=== PATIENT | female | born 1950 | race Hispanic/Latino ===

== ENCOUNTER 2016-09-17 10:54 | Outpatient (CLI) | payer MEDICARE ==
--- NOTE | 2016-09-18 08:21 | Vascular Lab Report ---
LOWER EXTREMITY ARTERIAL DUPLEX: REASON FOR EXAM: Peripheral arterial disease/gangrene. COMMENTS ON THE RIGHT: Triphasic waveforms are seen proximally. Monophasic waveforms are seen distally. No significant velocity gradients are identified. Scattered plaque is noted throughout lower extremity.. Findings are consistent with abnormal perfusion without identifiable focal stenosis. Findings are inconsistent with the ability to heal distal wounds. COMMENTS ON THE LEFT: Monophasic waveforms are seen proximally. Monophasic waveforms are seen distally. No significant velocity gradients are identified. No flow noted in the dorsalis pedis artery Scattered plaque identified throughout the extremity. Findings are consistent with abnormal perfusion. Findings are inconsistent with the ability to heal distal wounds. IMPRESSION: RIGHT: Abnormal perfusion without identifiable focal stenosis.. LEFT:Abnormal flow suggesting both inflow disease and diffuse disease throughout the extremity without identifiable stenosis. Occluded dorsalis pedis artery Clinical correlation recommended..
--- NOTE | 2016-09-18 08:23 | Vascular Lab Report ---
LOWER EXTREMITY ARTERIAL PHYSIOLOGIC STUDY: REASON FOR EXAM: Peripheral arterial disease. COMMENTS ON THE RIGHT: Ankle brachial index is 0.85. This value is abnormal. Toe brachial index is 0.64. This value is normal. Wound healing is likely. Pulse volume recording at the level of the ankle is abnormal. Exercise testing was not done. COMMENTS ON THE LEFT: Ankle brachial index is 0.94. This value is abnormal. Toe brachial index is 0.24. This value is abnormal. Wound healing is unlikely. Pulse volume recording at the level of the ankle is normal. Exercise testing was not done. IMPRESSION: RIGHT: Mild peripheral vascular disease LEFT:Mild peripheral vascular disease. Significant small vessel disease in the foot.
== END 2016-09-17 10:55 | disposition home or self-care (01) ==
LOC: VAS 10:54
PROVIDERS: ATTEND Radiology Diagnostic Radiology
DX: I70.263 Atherosclerosis of native arteries of extremities with gangrene, bilateral legs (principal)
CPT/HCPCS: 93922; 93925

== ENCOUNTER 2016-09-23 08:50 | Inpatient (IN) | payer MEDICARE ==
--- NOTE | 2016-09-19 13:57 | Admit Criteria Form ---
Admission Criteria Documentation: VASCULAR DISEASE GRG Clinical Indications for Admission to Inpatient Care (Place 'X' for any and all applicable criteria): Hospital admission is needed for appropriate care of the patient because of ANY ONE of the following (1)(2)(3)(4): [ ]I. Life-threatening or limb-threatening skin ulcer as indicated by ANY ONE of the following(5): [ ]a) Surrounding cellulitis unresponsive to outpatient treatment [ ]b) Wet gangrene [ ]c) Lymphangitis [ ]d) Bacteremia [X ]II. Gangrene requiring intensity and frequency of care not manageable to outpatient, emergency, or observation level of care(5) [ ]III. Severe pain requiring acute inpatient management [ ]IV. Interventional revascularization (eg, surgery, thrombolysis) needed (eg , critical limb ischemia)(21) [ ]V. Urgent inpatient IV anticoagulation needed due to ALL of the following: [ ]a) Temporary subtherapeutic anticoagulation unacceptable because of high risk of short-term venous or arterial thromboembolism due to ANY ONE of the following(7)(8)(9): [ ]i) Venous thromboembolism within the past 12 months [ ]ii) Underlying malignancy [ ]iii) Patient with mechanical cardiac valve(10)(11) [ ]iv) Underlying hypercoagulable state (eg, protein C or protein S deficiency, antithrombin deficiency, antiphospholipid antibodies) [ ]v) Patient at high risk of thromboembolism (eg, status post orthopedic surgery, history of recurrent venous thromboembolism) [ ]vi) Atrial fibrillation with rheumatic valvular heart disease [ ]vii) Atrial fibrillation with 3 or MORE of the following : [ ]1) Congestive heart failure [ ]2) Hypertension [ ]3) Age 65 years or older [ ]4) Diabetes mellitus [ ]5) History of thromboembolism (eg, stroke, TIA , or systemic embolization) more than 3 months ago [ ]6) Female gender [ ]b) Contraindications to outpatient use of "bridging" agent or alternative oral anticoagulant as indicated by ALL of the following: [ ]i) Contraindication to outpatient use of low-molecular -weight heparin as "bridging" agent as indicated by ANY ONE of the following(8) : [ ]1) Documented current or history of heparin- induced thrombocytopenia(12) [ ]2) Severe thrombocytopenia (eg, platelet count less than 50,000/mm3 (50 x109/L)) [ ]3) Documented allergy to heparin, low- molecular-weight heparin, or pork products [ ]4) Renal failure (creatinine clearance < 30 mL /min/1.73m2 (0.50 mL/sec/1.73m2) or on dialysis) [ ]5) Inability to manage self-injection (eg, by patient, caregiver, or visiting nurse) [ ]ii) Contraindication to outpatient use of fondaparinux as "bridging" agent as indicated by ANY ONE of the following(13)(14)(15)(16): [ ]1) Severe thrombocytopenia (eg, platelet count less than 50,000/mm3 (50 x109/L)) [ ]2) Hypersensitivity to fondaparinux, related drugs, or product components [ ]3) Renal failure (creatinine clearance less than 30 mL/min/1.73m2 (0.50 mL/sec/1.73m2) or on dialysis) [ ]4) Inability to manage self-injection (eg, by patient, caregiver, or visiting nurse) [ ]iii) Oral direct thrombin inhibitor (eg, dabigatran) or oral coagulation factor Xa inhibitor (eg, rivaroxaban) not appropriate as oral anticoagulation (eg, indication not appropriate) or contraindicated (eg, hypersensitivity, renal failure)(13)(16)(17)(18)(19)(20) [ ]. Suspected severe acute ischemia due to peripheral vascular disease as indicated by ANY ONE of the following(5)(6): [ ]a) Tissue necrosis [ ]b) Severe pain [ ]c) Acute pulselessness [ ]d) Other evidence of acute severe ischemia (eg, lactic acidosis , motor dysfunction) [ ]VII. Acute or newly diagnosed major vessel (eg, aorta) dissection, rupture, or leakage(5)(6)(22)(23) [ ]VIII.Vascular Disease and ALL of the following: [ ]a) Symptom or finding for which emergency and observation care have failed or are not considered appropriate (Use General Criteria: Observation Care as appropriate) [ ]b) Presence of ANY ONE of the following: [ ]i) A General Admission Criteria [ ]ii) A Pediatric General Admission Criteria The original [facility] content created by Jesus Cancino has been revised. The portions of the content which have been revised are identified through the use of italic text or in bold, and [facility] has neither reviewed nor approved the modified material. All other unmodified content is copyright [facility]. Please see references footnoted in the original [facility] edition 2016 Admission Criteria Met: Yes
[~2016-09-23 08:50] MED LIST: ANCEF/STERILE WATER 2 GM/20 ML 2 GM/20 ML SYRINGE IV NR; PEPCID PO NR; VERSED IV NR
[2016-09-23] MEDS ORDERED: ZOFRAN IV PRN (09:31)
[2016-09-23] MEDS ORDERED: SUBLIMAZE IV NR (09:31)
[2016-09-23 09:42] LABS: Basophils % (Auto) 0.6 % (0.0-1.8); Eosinophils % (Auto) 2.8 % (0.0-4.3); Hematocrit 39.2 % (30.3-42.9); Hemoglobin 12.8 gm/dl (10.1-14.3); Mean Corpuscular HGB Conc 33 % (30-34); Mean Corpuscular Hemoglobin 29 pg (28-32); Mean Corpuscular Volume 87 fl (79-97); Platelet Count 218 K/mm3 (140-440); Red Blood Count 4.48 M/mm3 (3.65-5.03); White Blood Count 8.9 K/mm3 (4.5-11.0)
[2016-09-23] MEDS: NACL 0.9% 1000 ML 1,000 ML IV SCH (09:42)
[2016-09-23 09:57] LABS: Anion Gap 18 mmol/L; BUN/Creatinine Ratio 8.33; Blood Urea Nitrogen 5 mg/dL (7-17); Calcium 9.4 mg/dL (8.4-10.2); Carbon Dioxide 26 mmol/L (22-30); Glucose 140 mg/dL (65-100); INR 1.09 (0.87-1.13); Sodium 140 mmol/L (137-145)
[2016-09-23] MEDS ORDERED: DILAUDID ONE (09:59)
[2016-09-23] MEDS ORDERED: DIPRIVAN 10 MG/ML IV ONE (09:59)
[2016-09-23] MEDS ORDERED: XYLOCAINE MPF 2% ONE (10:04)
[2016-09-23] MEDS ORDERED: MARCAINE 0.5% 30 ML INFILTRATI ONE (11:58)
[2016-09-23] MEDS ORDERED: DECADRON ONE ×2 (11:58→12:28)
--- NOTE | 2016-09-23 12:17 | Anesthesia Day of Surgery ---
Anesthesia Day of Surgery - Day of Surgery Patient Examined: Yes Patient H&P Reviewed: Yes Patient is NPO: Yes
--- NOTE | 2016-09-23 12:17 | Anesthesia Consultation ---
Anesthesia Consult and Med Hx Date of service: 09/23/16 - Airway Anesthetic Teeth Evaluation: Edentulous ROM Head & Neck: Adequate Mental/Hyoid Distance: Adequate Mallampati Class: Class II Intubation Access Assessment: Probably Good - Pulmonary Exam CTA: Yes - Cardiac Exam Cardiac Exam: RRR - Pre-Operative Health Status ASA Pre-Surgery Classification: ASA3 Proposed Anesthetic Plan: General Nerve Block: Ank - Pulmonary Hx Smoking: Yes (2-3 cigs/day) Hx Asthma: No COPD: Yes Hx Sleep Apnea: No - Cardiovascular System Hx Hypertension: Yes Hx Coronary Artery Disease: No Hx Pacemaker: No Hx Peripheral Vascular Disease: Yes - Central Nervous System Hx Psychiatric Problems: No - Endocrine Hx Non-Insulin Dependent Diabetes: Yes - Other Systems Hx Cancer: No
[2016-09-23] MEDS ORDERED: ZOFRAN ONE (12:28)
[2016-09-23] MEDS ORDERED: NACL 0.9% IR ONE (13:00)
--- NOTE | 2016-09-23 13:05 | Operative Report ---
Operative Report Operative Report: Date of procedure: 09/23/2016 Pre-operative diagnosis: PVD with Left Foot Gangrene Post-operative diagnosis: Same Procedure(s): 1. Left Transmetatarsal Amputation Surgeon: Olivier Thompson MD Cooker Operator: None Anesthesia: General Endotracheal Anesthesia EBL: Minimal Counts: Correct Complications: None Condition: Stable Findings: All remaining tissue appeared healthy with good bleeding edges. Specimen: Left forefoot sent for pathology Indication: The patient is a 66-year-old female with a history of peripheral vascular disease who presented with rest pain and thrombosis of her left SFA and tibial vessels. She underwent thrombolysis and revascularization of left lower extremity and had excellent flow to the foot however her digital vessels remained thrombosed. She presented to the office with gangrene of her second through fourth toes and is felt that she would not heal toe amputation sites and needed a transmetatarsal amputation. She was given the risks, benefits, and alternative procedures and consented to procedure. Description of Procedure: The patient was brought to the operating room and laid in supine position after general endotracheal anesthesia was achieved was prepped and draped in normal sterile fashion. A transverse incision was then created along the midportion of the metatarsals and carried distally to create a posterior flap. Electrocautery was used to take the dissection down to the metatarsals and the periosteum was then elevated on each metatarsal. The oscillating saw was then used to transect each metatarsal and then electrocautery was used to divide the remaining soft tissue and the specimen was passed off. Cautery was then used to achieve hemostasis within the wound and then a rasp was used to smooth each edge of the bone. The wound was copiously irrigated with saline and then anesthetized with Marcaine. The wound was then closed in 2 layers using 2-0 Vicryl to reapproximate the deep dermal layer and erica in the skin. The wound was then dressed with Xeroform gauze, fluffs, Kerlix, and an Guido bandage. The patient tolerated procedure well all sponge needle and instrument counts correct, the patient was taken to recovery in stable condition.
[2016-09-23] MEDS ORDERED: NACL 0.9% 1000 ML 1,000 ML ONE (13:06)
[2016-09-23] MEDS ORDERED: MORPHINE IV PRN ×2 (13:06)
[2016-09-23] MEDS ORDERED: DILAUDID IV PRN (13:06)
[2016-09-23] MEDS: DILAUDID IV PRN ×2 (13:43→13:53)
[2016-09-23] MEDS ORDERED: PREDNISOLONE ACETATE 1% OD SCH (14:00)
[2016-09-23] MEDS: PERCOCET 5/325 PO PRN (14:03)
--- NOTE | 2016-09-23 14:59 | Post Anesthesia Evaluation ---
- Post Anesthesia Evaluation Patient Participated: Yes Airway Patent: Yes Stable Respiratory Function: Yes Nausea/Vomiting: No Temp > 96.8F: Yes Pain Manageable: Yes Adequeate Hydration: Yes Anesthesia Complications: No Block Receding Appropriately: Not Applicable Patient on Ventilator: No
[2016-09-23] MEDS: NOVOLOG SUB-Q SCH ×2 (18:21→22:24)
--- NOTE | 2016-09-23 18:51 | Consultation ---
History of Present Illness - Reason for Consult Consult date: 09/23/16 Evaluate for Acute IRU - History of Present Illness 66 y.o. female with history of PVD and rest pain admitted for left transmetatarsal amputation secondary to gangrene. Pt with history of prior thrombolysis and revascularization prior to amputation. Pt is POD#0; pain remains well controlled due to block from surgery. Consult requested for post- acute placement recommendations. Past History Past Medical History: hypertension, PVD Past Surgical History: Other (revascularization procedure, breast cyst resection ) Social history: lives with family, smoking Family history: CAD, diabetes, hypertension Medications and Allergies Allergies Allergy/AdvReac Type Severity Reaction Status Date / Time lisinopril Allergy Rash Verified 09/18/16 17:14 Home Medications Medication Instructions Recorded Confirmed Last Taken Type AtorvaSTATin [Lipitor] 20 mg PO DAILY 08/26/16 09/23/16 09/22/16 19:00 History Clopidogrel Bisulfate [Clopidogrel] 75 mg PO DAILY 08/26/16 09/23/16 09/22/16 19 :00 History Ketorolac Tromethamin 0.4%(Nf) 1 drop OD QID 08/26/16 09/23/16 09/21/16 19:00 History [Acular Ls 0.4% Ophth Christina] Metformin HCl [Metformin HCl ER] 750 mg PO BID 08/26/16 09/23/16 09/21/16 19:00 History Ofloxacin 1 drop OD 4XD 08/26/16 09/23/16 09/22/16 20:00 History Tramadol HCl [traMADol] 50 mg PO Q6HR PRN 08/26/16 09/19/16 08/25/16 History 50mg prednisoLONE ACETATE 1% 1 drop OD QID 08/26/16 09/23/16 09/21/16 19:00 History Apixaban [Eliquis] 5 mg PO Q12HR #60 tablet 08/30/16 09/23/16 09/22/16 19:00 Rx Apixaban [Eliquis] 10 mg PO Q12HR #14 tablet 08/30/16 09/19/16 Unknown Rx oxyCODONE /ACETAMINOPHEN [Percocet 1 - 2 tab PO Q4HR #40 tab 08/30/16 09/23/16 09/22/16 11:55 Rx 5/325] Active Meds: Active Medications Acetaminophen/Hydrocodone Bitart ([place] 5/325) 2 each PO Q6H PRN PRN Reason: Pain, Moderate (4-6) Apixaban (Eliquis) 5 mg PO Q12HR [facility] Atorvastatin Calcium (Lipitor) 20 mg PO QHS [facility] Clopidogrel Bisulfate (Plavix) 75 mg PO DAILY [facility] Famotidine (Pepcid) 20 mg PO PREOP NR Stop: 09/23/16 23:59 Last Admin: 09/23/16 09:43 Dose: 20 mg Hydromorphone HCl (Dilaudid) 0.5 mg IV Q3H PRN PRN Reason: Pain , Severe (7-10) Sodium Chloride (Nacl 0.9% 1000 Ml) 1,000 mls @ 42 mls/hr IV DIRECT COURTNEY Last Admin: 09/23/16 09:42 Dose: 42 mls/hr Cefazolin Sodium (Ancef/Ns 1 Gm/50 Ml) 1 gm in 50 mls @ 100 mls/hr IV Q8H [facility] Stop: 09/24/16 05:29 Insulin Aspart (Novolog) 0 units SUB-Q ACHS [facility] PRN Reason: Protocol Last Admin: 09/23/16 18:21 Dose: 1 units Midazolam HCl (Versed) 2 mg IV PREOP NR Stop: 09/23/16 23:59 Last Admin: 09/23/16 12:06 Dose: 2 mg Miscellaneous Medication (Ketorolac Tromethamin 0.4%(Nf)) 1 drop OD QID [facility] Miscellaneous Medication (Metformin Hcl [Metformin Hcl Er]) 750 mg PO BID [facility] Morphine Sulfate (Morphine) 2 mg IV Q4H PRN PRN Reason: Pain, Moderate (4-6) Last Admin: 09/23/16 13:29 Dose: 2 mg Morphine Sulfate (Morphine) 4 mg IV Q4H PRN PRN Reason: Pain , Severe (7-10) Ofloxacin (Ocuflox) 1 drops OD 4XD [facility] Oxycodone/Acetaminophen (Percocet 5/325) 1 tab PO Q6H PRN PRN Reason: Pain, Moderate (4-6) Last Admin: 09/23/16 14:03 Dose: 1 tab Prednisolone Acetate (Pred Forte 1%) 1 drops OD QID [facility] Review of Systems All systems: negative Ears, nose, mouth and throat: no headache Cardiovascular: no chest pain Gastrointestinal: no nausea, no vomiting Exam - Constitutional Vitals: Vital Signs - 12hr 09/23/16 09/23/16 09/23/16 09:00 11:59 12:02 Temperature 97.8 F Pulse Rate 86 70 Respiratory 18 15 18 Rate Blood Pressure 152/66 141/66 O2 Sat by Pulse 98 97 Oximetry 09/23/16 09/23/16 09/23/16 12:04 12:09 12:11 Temperature Pulse Rate 84 79 81 Respiratory 13 13 14 Rate Blood Pressure 147/66 139/58 118/67 O2 Sat by Pulse 97 98 98 Oximetry 09/23/16 09/23/16 09/23/16 13:08 13:10 13:15 Temperature 97.4 F L Pulse Rate 79 80 76 Respiratory 16 18 18 Rate Blood Pressure 148/80 147/73 139/66 O2 Sat by Pulse 100 100 100 Oximetry 09/23/16 09/23/16 09/23/16 13:20 13:29 13:30 Temperature Pulse Rate 75 75 Respiratory 18 16 15 Rate Blood Pressure 133/65 136/64 O2 Sat by Pulse 100 100 Oximetry 09/23/16 09/23/16 09/23/16 13:43 13:45 13:47 Temperature Pulse Rate 71 Respiratory 16 16 16 Rate Blood Pressure 140/62 O2 Sat by Pulse 100 Oximetry 09/23/16 09/23/16 09/23/16 13:52 13:53 14:00 Temperature 97.9 F Pulse Rate 69 Respiratory 16 16 12 Rate Blood Pressure 140/71 O2 Sat by Pulse 99 Oximetry 09/23/16 14:03 Temperature Pulse Rate Respiratory 12 Rate Blood Pressure O2 Sat by Pulse Oximetry General appearance: no acute distress, other (sitting up in bed, eating dinner; daughter present) - EENT Eyes: PERRL ENT: hearing intact - Respiratory Respiratory effort: normal Respiratory: bilateral: CTA - Cardiovascular Rhythm: regular Heart Sounds: Present: S1 & S2 - Extremities Extremity abnormal: other (post-op dressng/SONYA to LLE) - Gastrointestinal General gastrointestinal: Present: soft, non-tender, non-distended, normal bowel sounds - Neurologic Neurologic: CNII-XII intact, moves all extremities, other (sensation grossly intact) - Psychiatric Psychiatric: appropriate mood/affect, intact judgment & insight, memory intact, cooperative - Labs CBC & Chem 7: 09/23/16 09:25 09/23/16 09:25 Labs: Laboratory Results - last 72 hr 09/23/16 09/23/16 09/23/16 09:25 09:25 09:25 WBC 8.9 RBC 4.48 Hgb 12.8 Hct 39.2 MCV 87 MCH 29 MCHC 33 RDW 15.0 Plt Count 218 Lymph % (Auto) 23.7 [place] % (Auto) 5.4 Eos % (Auto) 2.8 Baso % (Auto) 0.6 Lymph # 2.1 [place] # 0.5 Eos # 0.3 Baso # 0.1 Seg Neutrophils % 67.5 Seg Neutrophils # 6.0 PT 14.0 INR 1.09 Sodium 140 Potassium 4.0 Chloride 100.0 Carbon Dioxide 26 Anion Gap 18 BUN 5 L Creatinine 0.6 L Estimated GFR > 60 BUN/Creatinine Ratio 8.33 Glucose 140 H POC Glucose Calcium 9.4 09/23/16 09/23/16 09/23/16 09:30 13:19 16:45 WBC RBC Hgb Hct MCV MCH MCHC RDW Plt Count Lymph % (Auto) [place] % (Auto) Eos % (Auto) Baso % (Auto) Lymph # [place] # Eos # Baso # Seg Neutrophils % Seg Neutrophils # PT INR Sodium Potassium Chloride Carbon Dioxide Anion Gap BUN Creatinine Estimated GFR BUN/Creatinine Ratio Glucose POC Glucose 141 H 125 H 176 H Calcium Assessment and Plan Patient was assessed and evaluated for Acute Inpatient Rehab Unit. 66 y.o. female s/p left TMA secondary to gangrene. Rehab options discussed with patient and daughter. PT/OT evaluations have been ordered and are pending for tomorrow. Pt expressed desire to return home with [facility] ( already active), if stable; however, would agree to SNF close to home, if necessary. BP stable; post-op labs in AM. Will continue to follow; recommendations to follow after therapy evaluations have been completed. Thank you for consultation. - Patient Problems (1) Status post transmetatarsal amputation of left foot Current Visit: Yes Status: Acute (2) Atherosclerosis of [place] arteries of the extremities with rest pain Current Visit: Yes Status: Acute Qualifiers: Peripheral atherosclerosis location: lower extremity Laterality: left Qualified Code(s): I70.222 - Atherosclerosis of [place] arteries of extremities with rest pain, left leg (3) HTN (hypertension) Current Visit: Yes Status: Chronic Qualifiers: Hypertension type: essential hypertension Qualified Code(s): I10 - Essential (primary) hypertension
[2016-09-23] MEDS ORDERED: ANCEF/NS 1 GM/50 ML 1 GM/50 ML BAG IV SCH (21:00)
[2016-09-23] MEDS: ELIQUIS PO SCH (21:39)
[2016-09-23] MEDS: PRED FORTE 1% OD SCH (21:41)
[2016-09-23] MEDS: OCUFLOX OD SCH (21:41)
[2016-09-23] MEDS ORDERED: METFORMIN HCL 750 MG PO SCH (22:00)
[2016-09-24] MEDS: NORCO 5/325 PO PRN ×2 (01:25→16:55)
[2016-09-24 04:56] LABS: Hemoglobin 11.2 gm/dl (10.1-14.3)
[2016-09-24 05:14] LABS: Anion Gap 13 mmol/L; Blood Urea Nitrogen 6 mg/dL (7-17); Calcium 8.2 mg/dL (8.4-10.2); Carbon Dioxide 24 mmol/L (22-30); Glucose 175 mg/dL (65-100); Potassium 4.3 mmol/L (3.6-5.0); Sodium 135 mmol/L (137-145)
[2016-09-24] MEDS: OCUFLOX OD SCH ×4 (09:51→22:34)
[2016-09-24] MEDS: PRED FORTE 1% OD SCH ×4 (09:53→22:33)
[2016-09-24] MEDS: ELIQUIS PO SCH ×2 (09:54→22:31)
[2016-09-24] MEDS: PLAVIX PO SCH (09:54)
[2016-09-24] MEDS: KETOROLAC TROMETHAMIN 0.4% OD SCH ×4 (10:00→22:36)
--- NOTE | 2016-09-24 10:20 | Progress Note ---
Subjective Date of service: 09/24/16 Interval history: 1st day after left metatarsal amputation Patient is in the bed, relatively comfortable. Pain is well controlled with pain meds. No nausea or vomiting. No anesthesia complications Objective - Constitutional Vitals: Vital Signs - 12hr 09/23/16 09/24/16 09/24/16 23:17 04:34 08:00 Temperature 97.4 F L 98.5 F 98.9 F Pulse Rate [ 86 74 73 Right From Monitor] Respiratory 20 20 20 Rate Blood Pressure 137/73 114/75 148/69 [Right Arm] O2 Sat by Pulse 93 94 97 Oximetry - Labs CBC & Chem 7: 09/24/16 04:26 09/24/16 04:26 Labs: Abnormal lab results 09/23/16 09/23/16 09/23/16 Range/Units 13:19 16:45 22:12 Sodium (137-145) mmol/L BUN (7-17) mg/dL Creatinine (0.7-1.2) mg/dL Glucose (65-100) mg/dL POC Glucose 125 H 176 H 163 H (70-105) Calcium (8.4-10.2) mg/dL 09/24/16 09/24/16 Range/Units 04:26 07:23 Sodium 135 L (137-145) mmol/L BUN 6 L (7-17) mg/dL Creatinine 0.4 L (0.7-1.2) mg/dL Glucose 175 H (65-100) mg/dL POC Glucose 157 H (70-105) Calcium 8.2 L (8.4-10.2) mg/dL
[2016-09-24] MEDS ORDERED: ANCEF/NS 1 GM/50 ML 1 GM/50 ML BAG IV SCH (12:00)
--- NOTE | 2016-09-24 16:24 | Progress Note ---
Assessment and Plan Increase act. OOB with assistance. Await PT eval. Check wounds in the next 24-48 hrs. - Patient Problems (1) Atherosclerosis of [place] arteries of the extremities with gangrene Current Visit: Yes Status: Acute Qualifiers: Peripheral atherosclerosis location: P Laterality: L Subjective Date of service: 09/24/16 Interval history: Pt awake and alert. She c/o incisional pain, but improved with analgesics. Not oob yet. Objective - Constitutional Vitals: Vital Signs - 12hr 09/24/16 09/24/16 04:34 08:00 Temperature 98.5 F 98.9 F Pulse Rate [ 74 73 Right From Monitor] Respiratory 20 20 Rate Blood Pressure 114/75 148/69 [Right Arm] O2 Sat by Pulse 94 97 Oximetry General appearance: Present: no acute distress - EENT Eyes: EOM intact ENT: hearing intact - Neck Neck: supple - Respiratory Respiratory effort: normal Extremities: abnormal (LLE prabha wrap in place. It appears to be clean and dry.) - Neurologic Neurologic: no focal deficits - Psychiatric Psychiatric: appropriate mood/affect, intact judgment & insight, cooperative - Labs CBC & Chem 7: 09/24/16 04:26 09/24/16 04:26 Labs: Abnormal lab results 09/23/16 09/23/16 09/24/16 Range/Units 16:45 22:12 04:26 Sodium 135 L (137-145) mmol/L BUN 6 L (7-17) mg/dL Creatinine 0.4 L (0.7-1.2) mg/dL Glucose 175 H (65-100) mg/dL POC Glucose 176 H 163 H (70-105) Calcium 8.2 L (8.4-10.2) mg/dL 09/24/16 09/24/16 Range/Units 07:23 12:01 Sodium (137-145) mmol/L BUN (7-17) mg/dL Creatinine (0.7-1.2) mg/dL Glucose (65-100) mg/dL POC Glucose 157 H 119 H (70-105) Calcium (8.4-10.2) mg/dL
[2016-09-24] MEDS: NOVOLOG SUB-Q SCH (22:55)
[2016-09-25] MEDS: PERCOCET 5/325 PO PRN (04:58)
[2016-09-25] MEDS: NOVOLOG SUB-Q SCH ×4 (07:30→21:20)
[2016-09-25] MEDS: PLAVIX PO SCH (09:04)
[2016-09-25] MEDS: ELIQUIS PO SCH ×2 (09:04→22:20)
[2016-09-25] MEDS: PRED FORTE 1% OD SCH ×5 (10:00→22:22)
[2016-09-25] MEDS: KETOROLAC TROMETHAMIN 0.4% OD SCH ×5 (10:00→22:20)
[2016-09-25] MEDS: OCUFLOX OD SCH ×5 (10:00→22:22)
[2016-09-25] MEDS: NORCO 5/325 PO PRN ×2 (11:05→18:30)
--- NOTE | 2016-09-25 14:16 | Event Note ---
Date: 09/25/16 IRU F/U, s/p left TMA. Pt reports doing well on today; no dizziness or lightheadedness with gait training. Ambulated 37 feet with FWW, Yuliya shoe at CGA/SBA; Anna for sit-stand transfers. Pain is well controlled. Pt/daughter requesting placement at SNF close to home; pt has been accepted. Please call for any further questions/concerns. Will sign off.
--- NOTE | 2016-09-25 18:17 | Progress Note ---
Assessment and Plan This patient is status post a left transmetatarsal amputation. Her incisions appear to be doing well postoperatively. She was evaluated by physical therapy and the acute rehabilitation rehabilitation service. She is not a candidate for subacute rehabilitation. Discharge planning for this facility were completed. The patient was accepted. The patient will be transferred to the accepting facility once all arrangements are completed. Discharge instructions were given to the patient at the bedside. She will follow up in our office in 2 weeks. The erica will be removed in 6-8 weeks. She has a Yuliya heel weight bearing tissue to offload pressure from the forefoot. She is to use this with ambulation. - Patient Problems (1) Atherosclerosis of [place] arteries of the extremities with gangrene Current Visit: Yes Status: Acute Qualifiers: Peripheral atherosclerosis location: P Laterality: L Subjective Date of service: 09/25/16 Interval history: Patient is awake and alert without specific complaint at present. Objective - Constitutional Vitals: Vital Signs - 12hr 09/25/16 09/25/16 09/25/16 08:00 08:11 11:05 Temperature 97.7 F Pulse Rate [ 68 Right From Monitor] Respiratory 18 18 Rate Blood Pressure 136/70 [Right Arm] O2 Sat by Pulse 98 98 Oximetry 09/25/16 15:42 Temperature 97.5 F L Pulse Rate [ 66 Right From Monitor] Respiratory 18 Rate Blood Pressure 183/77 [Right Arm] O2 Sat by Pulse Oximetry General appearance: Present: no acute distress - EENT Eyes: EOM intact ENT: hearing intact - Neck Neck: supple - Respiratory Respiratory effort: normal Extremities: abnormal (bandages from left lower extremity were removed. Her incision is intact erica are in place. No erythema or drainage appreciated.) - Neurologic Neurologic: no focal deficits - Psychiatric Psychiatric: appropriate mood/affect, intact judgment & insight, cooperative - Labs CBC & Chem 7: 09/24/16 04:26 09/24/16 04:26 Labs: Abnormal lab results 09/24/16 Range/Units 22:32 POC Glucose 135 H (70-105)
--- NOTE | 2016-09-25 18:21 | Short Stay Summary ---
Short Stay Documentation Date of service: 09/25/16 - History H&P: obtained from office Past Medical History: hypertension, PVD Past Surgical History: Other (revascularization procedure, breast cyst resection ) Social history: lives with family, smoking - Allergies and Medications Current Medications: Allergies lisinopril Allergy (Verified 09/18/16 17:14) Rash Home Medications Medication Instructions Recorded Confirmed Last Taken Type AtorvaSTATin [Lipitor] 20 mg PO DAILY 08/26/16 09/23/16 09/22/16 19:00 History Clopidogrel Bisulfate [Clopidogrel] 75 mg PO DAILY 08/26/16 09/23/16 09/22/16 19 :00 History Ketorolac Tromethamin 0.4%(Nf) 1 drop OD QID 08/26/16 09/23/16 09/21/16 19:00 History [Acular Ls 0.4% Ophth Christina] Metformin HCl [Metformin HCl ER] 750 mg PO BID 08/26/16 09/23/16 09/21/16 19:00 History Ofloxacin 1 drop OD 4XD 08/26/16 09/23/16 09/22/16 20:00 History Tramadol HCl [traMADol] 50 mg PO Q6HR PRN 08/26/16 09/19/16 08/25/16 History 50mg prednisoLONE ACETATE 1% 1 drop OD QID 08/26/16 09/23/16 09/21/16 19:00 History Apixaban [Eliquis] 5 mg PO Q12HR #60 tablet 08/30/16 09/23/16 09/22/16 19:00 Rx Apixaban [Eliquis] 10 mg PO Q12HR #14 tablet 08/30/16 09/19/16 Unknown Rx oxyCODONE /ACETAMINOPHEN [Percocet 1 - 2 tab PO Q4HR #40 tab 08/30/16 09/23/16 09/22/16 11:55 Rx 5/325] Active Medications Acetaminophen/Hydrocodone Bitart ([place] 5/325) 2 each PO Q6H PRN PRN Reason: Pain, Moderate (4-6) Last Admin: 09/25/16 11:05 Dose: 2 each Apixaban (Eliquis) 5 mg PO Q12HR [facility] Last Admin: 09/25/16 09:04 Dose: 5 mg Atorvastatin Calcium (Lipitor) 20 mg PO QHS [facility] Last Admin: 09/24/16 22:32 Dose: 20 mg Clopidogrel Bisulfate (Plavix) 75 mg PO DAILY [facility] Last Admin: 09/25/16 09:04 Dose: 75 mg Hydromorphone HCl (Dilaudid) 0.5 mg IV Q3H PRN PRN Reason: Pain , Severe (7-10) Sodium Chloride (Nacl 0.9% 1000 Ml) 1,000 mls @ 42 mls/hr IV DIRECT [facility] Last Admin: 09/23/16 09:42 Dose: 42 mls/hr Insulin Aspart (Novolog) 0 units SUB-Q ACHS [facility] PRN Reason: Protocol Last Admin: 09/25/16 11:30 Dose: Not Given Miscellaneous Medication (Ketorolac Tromethamin 0.4%(Nf)) 1 drop OD QID [facility] Last Admin: 09/25/16 15:43 Dose: 1 drop Miscellaneous Medication (Metformin Hcl [Metformin Hcl Er]) 750 mg PO BID [facility] Morphine Sulfate (Morphine) 2 mg IV Q4H PRN PRN Reason: Pain, Moderate (4-6) Last Admin: 09/23/16 13:29 Dose: 2 mg Morphine Sulfate (Morphine) 4 mg IV Q4H PRN PRN Reason: Pain , Severe (7-10) Last Admin: 09/23/16 21:39 Dose: 4 mg Ofloxacin (Ocuflox) 1 drops OD 4XD [facility] Last Admin: 09/25/16 15:41 Dose: 1 drops Oxycodone/Acetaminophen (Percocet 5/325) 1 tab PO Q6H PRN PRN Reason: Pain, Moderate (4-6) Last Admin: 09/25/16 04:58 Dose: 1 tab Prednisolone Acetate (Pred Forte 1%) 1 drops OD QID [facility] Last Admin: 09/25/16 15:42 Dose: 1 drops - Physical exam Extremities: abnormal (bandages from left lower extremity were removed. Her incision is intact erica are in place. No erythema or drainage appreciated.) - Brief post op/procedure progress note Procedure: Operative Report Operative Report: Date of procedure: 09/23/2016 Pre-operative diagnosis: PVD with Left Foot Gangrene Post-operative diagnosis: Same Procedure(s): 1. Left Transmetatarsal Amputation Surgeon: Olivier Thompson MD Customer Engagement Specialist: None Anesthesia: regional block with MAC EBL: Minimal Counts: Correct Complications: None Condition: Stable Findings: All remaining tissue appeared healthy with good bleeding edges. Specimen: Left forefoot sent for pathology Indication: The patient is a 66-year-old female with a history of peripheral vascular disease who presented with rest pain and thrombosis of her left SFA and tibial vessels. She underwent thrombolysis and revascularization of left lower extremity and had excellent flow to the foot however her digital vessels remained thrombosed. She presented to the office with gangrene of her second through fourth toes and is felt that she would not heal toe amputation sites and needed a transmetatarsal amputation. She was given the risks, benefits, and alternative procedures and consented to procedure. - Disposition Condition at discharge: Stable Disposition: DC/TX SNF [facility] - Discharge Diagnoses (1) Atherosclerosis of [place] arteries of the extremities with gangrene Status: Acute Qualifiers: Peripheral atherosclerosis location: P Laterality: L Short Stay Discharge Plan Activity: advance as tolerated Weight Bearing Status: Weight Bear as Tolerated Diet: diabetic Wound: keep clean and dry, change dressing (daily) Special Instructions: physical therapy Follow up with: OLIVIER THOMPSON MD [Staff Physician] - 14 Days
[2016-09-25] MEDS: NACL 0.9% 1000 ML 1,000 ML IV SCH (22:21)
[2016-09-26] MEDS: NORCO 5/325 PO PRN (10:12)
[2016-09-26] MEDS: PLAVIX PO SCH (10:13)
[2016-09-26] MEDS: ELIQUIS PO SCH (10:13)
[2016-09-26] MEDS: PRED FORTE 1% OD SCH ×2 (10:15→14:48)
[2016-09-26] MEDS: OCUFLOX OD SCH ×2 (10:16→14:48)
--- NOTE | 2016-09-26 14:49 | Progress Note ---
Assessment and Plan Patient is doing well status post left TMA. All wounds appear healthy and healing well. She is clinically referred for discharge to her assisted when available. Subjective Date of service: 09/26/16 Interval history: Patient is without complaints. She is able to perform minimal ambulation with her Darco boot. Objective - Constitutional Vitals: Vital Signs - 12hr 09/26/16 08:00 Temperature 98.4 F Pulse Rate [ 57 L Right From Monitor] Respiratory 18 Rate Blood Pressure 132/62 [Right Arm] O2 Sat by Pulse 97 Oximetry General appearance: Present: no acute distress - Neck Neck: supple - Respiratory Respiratory effort: normal - Cardiovascular Rhythm: regular Extremities: no ischemia, normal temperature, abnormal (left TMA incision is clean dry and intact without evidence of ischemia or infection) - Labs CBC & Chem 7: 09/24/16 04:26 09/24/16 04:26 Labs: Abnormal lab results 09/25/16 09/25/16 09/25/16 Range/Units 08:15 11:21 15:29 POC Glucose 115 H 118 H 149 H (70-105) 09/25/16 09/26/16 Range/Units 21:42 08:35 POC Glucose 119 H 117 H (70-105)
[2016-09-26] MEDS: KETOROLAC TROMETHAMIN 0.4% OD SCH (14:53)
[2016-09-26 16:23] VITALS: BP 142/68
== END 2016-09-26 17:15 | DRG 240 ==
LOC: 3A 08:50 → 2B-SURG 13:20
PROVIDERS: ADMIT Surgery Vascular Surgery; ATTEND Surgery Vascular Surgery
PROC: 0Y6N0Z9 Detachment at Left Foot, Partial 1st Ray, Open Approach (ICD-10-PCS; principal; 2016-09-23)
PROC: 0Y6N0ZB Detachment at Left Foot, Partial 2nd Ray, Open Approach (ICD-10-PCS; 2016-09-23)
PROC: 0Y6N0ZC Detachment at Left Foot, Partial 3rd Ray, Open Approach (ICD-10-PCS; 2016-09-23)
PROC: 0Y6N0ZD Detachment at Left Foot, Partial 4th Ray, Open Approach (ICD-10-PCS; 2016-09-23)
PROC: 0Y6N0ZF Detachment at Left Foot, Partial 5th Ray, Open Approach (ICD-10-PCS; 2016-09-23)
DX: I70.262 Atherosclerosis of native arteries of extremities with gangrene, left leg (principal); I74.3 Embolism and thrombosis of arteries of the lower extremities; I10 Essential (primary) hypertension; E78.5 Hyperlipidemia, unspecified; F17.210 Nicotine dependence, cigarettes, uncomplicated; Z79.4 Long term (current) use of insulin; Z82.49 Family history of ischemic heart disease and other diseases of the circulatory system; Z83.3 Family history of diabetes mellitus; Z88.8 Allergy status to other drugs, medicaments and biological substances; Z88.6 Allergy status to analgesic agent; Z98.49 Cataract extraction status, unspecified eye; Z98.890 Other specified postprocedural states; Z71.6 Tobacco abuse counseling
CPT/HCPCS: 36415; 80048; 82962; 85014; 85018; 85025; 85610; 88307; 88311; A9270-GY; G8978-GP; G8979-GP; J0690; J1100; J1170; J1815; J2250; J2270; J2405; J2704; J3010; J7030

== ENCOUNTER 2017-01-02 08:14 | Outpatient (CLI) | payer MEDICARE ==
[2017-01-02] MEDS ORDERED: XYLOCAINE TOPICAL 4% TP ONE (08:54)
[2017-01-02] MEDS ORDERED: SANTYL TP ONE (09:48)
== END 2017-01-02 08:15 | disposition home or self-care (01) ==
LOC: WOUND 08:14
PROVIDERS: ATTEND Nurse Practitioner
DX: T87.89 Other complications of amputation stump (principal); I70.245 Atherosclerosis of native arteries of left leg with ulceration of other part of foot; E11.621 Type 2 diabetes mellitus with foot ulcer; L97.521 Non-pressure chronic ulcer of other part of left foot limited to breakdown of skin; E78.2 Mixed hyperlipidemia; J43.9 Emphysema, unspecified; L84 Corns and callosities; Z98.49 Cataract extraction status, unspecified eye; F17.200 Nicotine dependence, unspecified, uncomplicated; Y83.5 Amputation of limb(s) as the cause of abnormal reaction of the patient, or of later complication, without mention of misadventure at the time of the procedure
CPT/HCPCS: 11042; G0463; 11055

== ENCOUNTER 2017-01-09 10:09 | Outpatient (CLI) | payer MEDICARE ==
[2017-01-09] MEDS ORDERED: XYLOCAINE TOPICAL 4% TP ONE (11:16)
[2017-01-09] MEDS ORDERED: SANTYL TP ONE (11:46)
[2017-01-10] MEDS ORDERED: SANTYL TP SCH (10:00)
== END 2017-01-09 10:10 | disposition home or self-care (01) ==
LOC: WOUND 10:09
PROVIDERS: ATTEND Nurse Practitioner
DX: T87.89 Other complications of amputation stump (principal); I70.245 Atherosclerosis of native arteries of left leg with ulceration of other part of foot; E11.621 Type 2 diabetes mellitus with foot ulcer; L97.521 Non-pressure chronic ulcer of other part of left foot limited to breakdown of skin; E78.2 Mixed hyperlipidemia; J43.9 Emphysema, unspecified; F17.200 Nicotine dependence, unspecified, uncomplicated; Z98.49 Cataract extraction status, unspecified eye; Y83.5 Amputation of limb(s) as the cause of abnormal reaction of the patient, or of later complication, without mention of misadventure at the time of the procedure

== ENCOUNTER 2017-01-16 09:59 | Outpatient (CLI) | payer MEDICARE ==
[2017-01-16] MEDS ORDERED: XYLOCAINE TOPICAL 4% TP ONE (10:50)
[2017-01-16] MEDS ORDERED: SANTYL TP ONE (11:41)
[2017-01-17] MEDS ORDERED: SANTYL TP ONE (09:57)
[2017-01-17] MEDS ORDERED: XYLOCAINE TOPICAL 4% TP ONE (09:57)
== END 2017-01-16 10:00 | disposition home or self-care (01) ==
LOC: WOUND 09:59
PROVIDERS: ATTEND Nurse Practitioner
DX: T87.89 Other complications of amputation stump (principal); I70.245 Atherosclerosis of native arteries of left leg with ulceration of other part of foot; E11.621 Type 2 diabetes mellitus with foot ulcer; L97.521 Non-pressure chronic ulcer of other part of left foot limited to breakdown of skin; I70.293 Other atherosclerosis of native arteries of extremities, bilateral legs; E78.2 Mixed hyperlipidemia; J43.9 Emphysema, unspecified; F17.200 Nicotine dependence, unspecified, uncomplicated; Y83.5 Amputation of limb(s) as the cause of abnormal reaction of the patient, or of later complication, without mention of misadventure at the time of the procedure

== ENCOUNTER 2017-01-30 10:08 | Outpatient (CLI) | payer MEDICARE ==
[2017-01-30] MEDS ORDERED: XYLOCAINE TOPICAL 4% TP ONE ×2 (10:31→10:43)
[2017-01-30] MEDS ORDERED: SANTYL TP ONE (10:58)
== END 2017-01-30 10:09 | disposition home or self-care (01) ==
LOC: WOUND 10:08
PROVIDERS: ATTEND Surgery
DX: T87.89 Other complications of amputation stump (principal); E11.621 Type 2 diabetes mellitus with foot ulcer; I70.245 Atherosclerosis of native arteries of left leg with ulceration of other part of foot; L97.521 Non-pressure chronic ulcer of other part of left foot limited to breakdown of skin; E78.2 Mixed hyperlipidemia; I70.293 Other atherosclerosis of native arteries of extremities, bilateral legs; E11.51 Type 2 diabetes mellitus with diabetic peripheral angiopathy without gangrene; J43.9 Emphysema, unspecified; F17.200 Nicotine dependence, unspecified, uncomplicated; Z98.49 Cataract extraction status, unspecified eye; Y83.5 Amputation of limb(s) as the cause of abnormal reaction of the patient, or of later complication, without mention of misadventure at the time of the procedure

== ENCOUNTER 2017-02-06 10:07 | Outpatient (CLI) | payer MEDICARE ==
[2017-02-06] MEDS ORDERED: XYLOCAINE TOPICAL 4% TP ONE (11:15)
== END 2017-02-06 10:08 | disposition home or self-care (01) ==
LOC: WOUND 10:07
PROVIDERS: ATTEND Nurse Practitioner
DX: T87.89 Other complications of amputation stump (principal); I70.245 Atherosclerosis of native arteries of left leg with ulceration of other part of foot; E11.621 Type 2 diabetes mellitus with foot ulcer; L97.521 Non-pressure chronic ulcer of other part of left foot limited to breakdown of skin; E11.51 Type 2 diabetes mellitus with diabetic peripheral angiopathy without gangrene; E78.2 Mixed hyperlipidemia; J43.9 Emphysema, unspecified; F17.200 Nicotine dependence, unspecified, uncomplicated; Y83.5 Amputation of limb(s) as the cause of abnormal reaction of the patient, or of later complication, without mention of misadventure at the time of the procedure

== ENCOUNTER 2017-02-13 10:10 | Outpatient (CLI) | payer MEDICARE ==
[2017-02-13] MEDS ORDERED: XYLOCAINE TOPICAL 4% TP ONE (10:33)
== END 2017-02-13 10:11 | disposition home or self-care (01) ==
LOC: WOUND 10:10
PROVIDERS: ATTEND Nurse Practitioner
DX: T87.89 Other complications of amputation stump (principal); I70.245 Atherosclerosis of native arteries of left leg with ulceration of other part of foot; E11.621 Type 2 diabetes mellitus with foot ulcer; L97.521 Non-pressure chronic ulcer of other part of left foot limited to breakdown of skin; E11.51 Type 2 diabetes mellitus with diabetic peripheral angiopathy without gangrene; E78.2 Mixed hyperlipidemia; J43.9 Emphysema, unspecified; F17.200 Nicotine dependence, unspecified, uncomplicated; Y83.5 Amputation of limb(s) as the cause of abnormal reaction of the patient, or of later complication, without mention of misadventure at the time of the procedure

== ENCOUNTER 2017-02-20 10:00 | Outpatient (CLI) | payer MEDICARE ==
[2017-02-20] MEDS ORDERED: XYLOCAINE TOPICAL 4% TP ONE ×2 (10:16→10:31)
== END 2017-02-20 10:01 | disposition home or self-care (01) ==
LOC: WOUND 10:00
PROVIDERS: ATTEND Nurse Practitioner
DX: T87.89 Other complications of amputation stump (principal); I70.245 Atherosclerosis of native arteries of left leg with ulceration of other part of foot; E11.621 Type 2 diabetes mellitus with foot ulcer; L97.521 Non-pressure chronic ulcer of other part of left foot limited to breakdown of skin; E11.51 Type 2 diabetes mellitus with diabetic peripheral angiopathy without gangrene; E78.2 Mixed hyperlipidemia; J43.9 Emphysema, unspecified; Z87.891 Personal history of nicotine dependence; Y83.5 Amputation of limb(s) as the cause of abnormal reaction of the patient, or of later complication, without mention of misadventure at the time of the procedure

== ENCOUNTER 2017-02-27 10:14 | Outpatient (CLI) | payer MEDICARE ==
[2017-02-27] MEDS ORDERED: XYLOCAINE TOPICAL 4% TP ONE ×2 (10:32→10:46)
== END 2017-02-27 10:15 | disposition home or self-care (01) ==
LOC: WOUND 10:14
PROVIDERS: ATTEND Surgery
DX: T87.89 Other complications of amputation stump (principal); E11.621 Type 2 diabetes mellitus with foot ulcer; L97.521 Non-pressure chronic ulcer of other part of left foot limited to breakdown of skin; E78.5 Hyperlipidemia, unspecified; J43.9 Emphysema, unspecified; E11.51 Type 2 diabetes mellitus with diabetic peripheral angiopathy without gangrene; F17.200 Nicotine dependence, unspecified, uncomplicated; Z98.49 Cataract extraction status, unspecified eye; Y83.5 Amputation of limb(s) as the cause of abnormal reaction of the patient, or of later complication, without mention of misadventure at the time of the procedure

== ENCOUNTER 2017-03-06 10:10 | Outpatient (CLI) | payer MEDICARE ==
[2017-03-06] MEDS ORDERED: XYLOCAINE TOPICAL 2% TP ONE (10:28)
[2017-03-06] MEDS ORDERED: XYLOCAINE TOPICAL 2% ONE (10:35)
== END 2017-03-06 10:11 | disposition home or self-care (01) ==
LOC: WOUND 10:10
PROVIDERS: ATTEND Nurse Practitioner
DX: T87.89 Other complications of amputation stump (principal); I70.245 Atherosclerosis of native arteries of left leg with ulceration of other part of foot; E11.621 Type 2 diabetes mellitus with foot ulcer; L97.521 Non-pressure chronic ulcer of other part of left foot limited to breakdown of skin; E78.2 Mixed hyperlipidemia; I70.293 Other atherosclerosis of native arteries of extremities, bilateral legs; J43.9 Emphysema, unspecified; E11.51 Type 2 diabetes mellitus with diabetic peripheral angiopathy without gangrene; F17.200 Nicotine dependence, unspecified, uncomplicated; Y83.5 Amputation of limb(s) as the cause of abnormal reaction of the patient, or of later complication, without mention of misadventure at the time of the procedure

== ENCOUNTER 2017-03-13 10:04 | Outpatient (CLI) | payer MEDICARE ==
[2017-03-13] MEDS ORDERED: XYLOCAINE TOPICAL 4% TP ONE (11:11)
[2017-03-13] MEDS ORDERED: XYLOCAINE TOPICAL 2% ONE (11:13)
== END 2017-03-13 10:05 | disposition home or self-care (01) ==
LOC: WOUND 10:04
PROVIDERS: ATTEND Nurse Practitioner
DX: T87.89 Other complications of amputation stump (principal); I70.245 Atherosclerosis of native arteries of left leg with ulceration of other part of foot; E11.621 Type 2 diabetes mellitus with foot ulcer; L97.521 Non-pressure chronic ulcer of other part of left foot limited to breakdown of skin; I70.293 Other atherosclerosis of native arteries of extremities, bilateral legs; E78.2 Mixed hyperlipidemia; J43.9 Emphysema, unspecified; E11.51 Type 2 diabetes mellitus with diabetic peripheral angiopathy without gangrene; Z98.62 Peripheral vascular angioplasty status; Y83.5 Amputation of limb(s) as the cause of abnormal reaction of the patient, or of later complication, without mention of misadventure at the time of the procedure

== ENCOUNTER 2017-03-20 09:55 | Outpatient (CLI) | payer MEDICARE ==
[2017-03-20] MEDS ORDERED: XYLOCAINE TOPICAL 4% TP ONE ×2 (10:11→10:20)
== END 2017-03-20 09:56 | disposition home or self-care (01) ==
LOC: WOUND 09:55
PROVIDERS: ATTEND Nurse Practitioner
DX: T87.89 Other complications of amputation stump (principal); I70.245 Atherosclerosis of native arteries of left leg with ulceration of other part of foot; E11.621 Type 2 diabetes mellitus with foot ulcer; L97.521 Non-pressure chronic ulcer of other part of left foot limited to breakdown of skin; E11.51 Type 2 diabetes mellitus with diabetic peripheral angiopathy without gangrene; E78.2 Mixed hyperlipidemia; J43.9 Emphysema, unspecified; F17.200 Nicotine dependence, unspecified, uncomplicated; Z89.429 Acquired absence of other toe(s), unspecified side; Z98.62 Peripheral vascular angioplasty status; Y83.5 Amputation of limb(s) as the cause of abnormal reaction of the patient, or of later complication, without mention of misadventure at the time of the procedure

== ENCOUNTER 2017-03-27 10:03 | Outpatient (CLI) | payer MEDICARE ==
[2017-03-27] MEDS ORDERED: XYLOCAINE TOPICAL 4% TP ONE (10:36)
== END 2017-03-27 10:04 | disposition home or self-care (01) ==
LOC: WOUND 10:03
PROVIDERS: ATTEND Nurse Practitioner
DX: T87.89 Other complications of amputation stump (principal); I70.245 Atherosclerosis of native arteries of left leg with ulceration of other part of foot; E11.621 Type 2 diabetes mellitus with foot ulcer; L97.521 Non-pressure chronic ulcer of other part of left foot limited to breakdown of skin; E78.5 Hyperlipidemia, unspecified; J43.9 Emphysema, unspecified; E11.51 Type 2 diabetes mellitus with diabetic peripheral angiopathy without gangrene; F17.200 Nicotine dependence, unspecified, uncomplicated; Z98.62 Peripheral vascular angioplasty status; Y83.5 Amputation of limb(s) as the cause of abnormal reaction of the patient, or of later complication, without mention of misadventure at the time of the procedure

== ENCOUNTER 2017-04-03 09:58 | Outpatient (CLI) | payer MEDICARE | END 2017-04-03 09:59 | disposition home or self-care (01) | LOC: WOUND 09:58 | PROVIDERS: ATTEND Nurse Practitioner | DX: T87.89 Other complications of amputation stump (principal); E11.621 Type 2 diabetes mellitus with foot ulcer; L97.521 Non-pressure chronic ulcer of other part of left foot limited to breakdown of skin; I70.245 Atherosclerosis of native arteries of left leg with ulceration of other part of foot; E78.2 Mixed hyperlipidemia; E11.51 Type 2 diabetes mellitus with diabetic peripheral angiopathy without gangrene; F17.210 Nicotine dependence, cigarettes, uncomplicated; Y83.5 Amputation of limb(s) as the cause of abnormal reaction of the patient, or of later complication, without mention of misadventure at the time of the procedure | CPT/HCPCS: 99213; G0463 ==

== ENCOUNTER 2017-06-10 09:28 | Outpatient (CLI) | payer MEDICARE ==
[2017-06-10 10:10] LABS: Blood Urea Nitrogen 7 mg/dL (7-17)
[2017-06-10] MEDS ORDERED: NACL ONE (10:35)
--- NOTE | 2017-06-11 09:27 | Cat Scan Report ---
CT ANGIO ABD/FEMORAL ABD AORTA: HISTORY: Atherosclerosis of [place] arteries the left leg with ulceration. TECHNIQUE: Helical CT imaging with 1.25mm reconstructions following IV contrast. Sagittal and Coronal 2D reformatted images. 3 dimensional volume rendering technique. Stenosis was measured using NASCET criteria. COMPARISON: None. FINDINGS: ABDOMINAL AORTA: There are moderate to severe mixed density atherosclerotic plaques throughout the abdominal aorta. No aneurysm or dissection is identified. Stenosis measured less than 40%. The celiac axis, SMA, single left renal artery and dual right renal arteries are widely patent with less than 20% stenosis. The origin of the [place] appears to be occluded. ILIAC ARTERIES: Moderate to severe mixed density plaques are identified in both common iliac arteries with stenosis measuring up to 50%. A distal left common iliac stent is identified which is patent. There are mild atherosclerotic plaques in the external iliac arteries with stenosis measuring less than 40%. The left internal iliac artery is occluded. The right internal iliac artery is patent with less than 30% stenosis.. RIGHT LOWER EXTREMITY: The right femoral and popliteal arteries or well opacified and mostly widely patent. There is one focal area of narrowing in the mid to distal right superficial femoral artery with stenosis measuring 50-60%. This is best demonstrated on image 545. Otherwise the arterial structures in the right leg are identified to the ankle and demonstrate less than 20% stenosis. LEFT LOWER EXTREMITY: There is long segment occlusion throughout the left superficial femoral artery and left popliteal artery. The profundus artery is patent and provides collateral flow distal to the popliteal artery although perfusion is extremely limited on CTA. I believe I see the left posterior tibial artery which is very small in caliber. IMPRESSION: Diffuse atherosclerotic disease. Long segment occlusion including the entire left superficial femoral artery and left popliteal artery. There is collateral flow in the left leg via the profundus artery although perfusion distal to the left knee is extremely poor. The left internal iliac artery is occluded. Focal 50-60% stenosis in the mid to distal right superficial femoral artery. 50% stenosis in the bilateral common iliac arteries.
== END 2017-06-10 09:29 | disposition home or self-care (01) ==
LOC: CT 09:28
PROVIDERS: ATTEND Radiology Diagnostic Radiology
DX: I70.245 Atherosclerosis of native arteries of left leg with ulceration of other part of foot (principal); I70.291 Other atherosclerosis of native arteries of extremities, right leg; L76.32 Postprocedural hematoma of skin and subcutaneous tissue following other procedure; K76.89 Other specified diseases of liver; Z89.422 Acquired absence of other left toe(s)
CPT/HCPCS: 36415; 75635; 82565; 84520; Q9967

== ENCOUNTER 2017-06-23 06:52 | Day surgery (SDC) | payer MEDICARE ==
[2017-06-23 08:47] LABS: Basophils % (Auto) 0.2 % (0.0-1.8); Eosinophils % (Auto) 0.4 % (0.0-4.3); Hematocrit 32.7 % (30.3-42.9); Hemoglobin 10.6 gm/dl (10.1-14.3); Mean Corpuscular HGB Conc 32 % (30-34); Mean Corpuscular Hemoglobin 28 pg (28-32); Mean Corpuscular Volume 87 fl (79-97); Platelet Count 338 K/mm3 (140-440); Red Blood Count 3.78 M/mm3 (3.65-5.03); White Blood Count 17.2 K/mm3 (4.5-11.0)
[2017-06-23 08:57] LABS: INR 1.15 (0.87-1.13); Partial Thromboplastin Time 35.9 Sec. (24.2-36.6)
[2017-06-23] MEDS ORDERED: VERSED IV ONE (09:00)
[2017-06-23] MEDS ORDERED: SUBLIMAZE IV ONE (09:00)
[2017-06-23] MEDS ORDERED: NACL 0.9% 500 ML 0 ML ONE (10:08)
[2017-06-23] MEDS ORDERED: BENADRYL ONE (10:35)
[2017-06-23] MEDS ORDERED: BENADRYL IV ONE (11:00)
--- NOTE | 2017-06-23 11:20 | Cat Scan Report ---
CT BIOPSY LIVER History: Liver mass, pancreatic mass. Description of procedure: Informed consent was obtained. Sterile technique was utilized. 1% lidocaine for skin anesthesia. Moderate sedation was accomplished with Versed, fentanyl and Benadryl. Independent cardiorespiratory monitoring by RN. The patient was sedated for 15 minutes. Intraobserver time of [address] guidance, a 17-gauge introducer needle was advanced to the leading at an approximate 3 cm mass in the right hepatic lobe. 2 separate 18-gauge core biopsies were obtained. Pathology was present and deemed the samples adequate. No complications. Impression: Successful CT-guided biopsy of a right hepatic lobe mass.
--- NOTE | 2017-06-23 11:23 | Short Stay Summary ---
Short Stay Documentation Date of service: 06/23/17 Narrative H&P: liver mass - History Principal diagnosis: liver masses, pancreatic mass H&P: obtained from office - Allergies and Medications Current Medications: Allergies lisinopril Allergy (Verified 09/18/16 17:14) Rash Home Medications Medication Instructions Recorded Confirmed Last Taken Type AtorvaSTATin [Lipitor] 20 mg PO DAILY 08/26/16 06/23/17 06/22/17 History 20mg Clopidogrel Bisulfate [Clopidogrel] 75 mg PO DAILY 08/26/16 06/23/17 06/18/17 History 75mg Apixaban [Eliquis] 5 mg PO Q12HR #60 tablet 08/30/16 06/23/17 06/18/17 Rx 5mg Gabapentin 100 mg PO TID 05/22/17 06/23/17 06/22/17 History 100mg Cilostazol [Pletal] 100 mg PO BID #60 tablet 06/05/17 06/23/17 06/22/17 Rx 100mg Oxycodone HCl/Acetaminophen 1 tab PO Q6H 06/23/17 06/23/17 06/22/17 History [Percocet 7.5/325 mg] 1 tab - Physical exam General appearance: no acute distress HEENT: Mucous membr. moist/pink Lungs: Clear to auscultation Gastrointestinal: normoactive bowel sounds - Brief post op/procedure progress note Date of procedure: 06/23/17 Pre-op diagnosis: liver mass Post-op diagnosis: same Procedure: CT liver biopsy Anesthesia: other (moderate sedation) Findings: multiple liver masses, pancreatic mass Surgeon: DENNY GREEN Pathology: list (18g core biopsy x 2) Condition: stable - Hospital course Hospital course: uneventful - Disposition Condition at discharge: Good Disposition: DC-01 TO HOME OR SELFCARE - Discharge Diagnoses (1) Liver cancer Status: Acute Qualifiers: Liver malignancy type: other carcinoma Qualified Code(s): C22.7 - Other specified carcinomas of liver
[2017-06-23 13:59] VITALS: BP 149/68
== END 2017-06-23 14:15 | disposition home or self-care (01) ==
LOC: CATHLABREC 06:52 → EDSTATUS 08:30 → CATHLABREC 14:15
PROVIDERS: ATTEND Internal Medicine Hematology & Oncology
DX: C78.7 Secondary malignant neoplasm of liver and intrahepatic bile duct (principal); K86.9 Disease of pancreas, unspecified; Z79.01 Long term (current) use of anticoagulants; Z88.8 Allergy status to other drugs, medicaments and biological substances
CPT/HCPCS: 36415; 47000; 77012; 82962; 85025; 85610; 85730; 88305; 88333; 88341; 88342; 96374; 99156; J1200; J2250; J3010; 88307; J7040

== ENCOUNTER 2017-07-10 08:43 | Inpatient (IN) | payer MEDICARE ==
[~2017-07-10 08:43] MED LIST changes: +NACL 0.9% 1000 ML 1,000 ML IV SCH; -PEPCID PO NR; -VERSED IV NR
[2017-07-10 09:46] LABS: Basophils % (Auto) 0.3 % (0.0-1.8); Eosinophils % (Auto) 0.4 % (0.0-4.3); Hematocrit 35.7 % (30.3-42.9); Hemoglobin 11.2 gm/dl (10.1-14.3); Mean Corpuscular HGB Conc 32 % (30-34); Mean Corpuscular Hemoglobin 26 pg (28-32); Mean Corpuscular Volume 83 fl (79-97); Platelet Count 421 K/mm3 (140-440); Red Blood Count 4.33 M/mm3 (3.65-5.03); Red Cell Distribution Width 17.8 % (13.2-15.2); White Blood Count 16.2 K/mm3 (4.5-11.0)
[2017-07-10 09:57] LABS: INR 1.57 (0.87-1.13)
[2017-07-10 09:59] LABS: Anion Gap 20 mmol/L; BUN/Creatinine Ratio 23; Blood Urea Nitrogen 7 mg/dL (7-17); Carbon Dioxide 24 mmol/L (22-30); Chloride 93.9 mmol/L (98-107); Glucose 147 mg/dL (65-100); Potassium 4.7 mmol/L (3.6-5.0); Sodium 133 mmol/L (137-145)
[2017-07-10] MEDS ORDERED: NACL 0.9% 500 ML 500 ML IV SCH (10:00)
[2017-07-10] MEDS ORDERED: NACL 0.9% 500 ML 500 ML ONE ×2 (10:27→16:39)
[2017-07-10] MEDS ORDERED: HEPARIN/NS 5000 UNIT/500ML(CATH LAB) 1,000 ML IR ONE (13:28)
[2017-07-10] MEDS ORDERED: ANCEF/STERILE WATER 2 GM/20 ML 2 GM/20 ML SYRINGE IV ONE (13:29)
[2017-07-10] MEDS ORDERED: XYLOCAINE 2% INFILTRATI ONE (13:29)
[2017-07-10] MEDS: VERSED ONE ×7 (13:40→16:04)
[2017-07-10] MEDS: SUBLIMAZE ONE ×11 (13:40→16:24)
[2017-07-10] MEDS: HEPARIN 10,000 UNITS/10 ML ONE ×4 (13:48→16:30)
[2017-07-10] MEDS ORDERED: CATHFLO ONE ×5 (13:54→16:32)
[2017-07-10] MEDS ORDERED: NACL 0.9% 50 ML ONE (13:54)
[2017-07-10] MEDS ORDERED: WATER FOR INJ (PF) 20 ML ONE (13:54)
[2017-07-10] MEDS ORDERED: HEPARIN/NS 5000 UNIT/500ML(CATH LAB) 500 ML IR ONE ×2 (13:54→15:37)
[2017-07-10] MEDS: BENADRYL ONE ×2 (14:28→14:57)
[2017-07-10] MEDS ORDERED: NITROGLYCERIN SYRINGE 6 ML ONE (15:01)
[2017-07-10] MEDS ORDERED: WATER FOR INJ (PF) 10 ML ONE ×2 (15:35→16:11)
[2017-07-10] MEDS: CATHFLO ONE ×2 (15:52→15:59)
[2017-07-10] MEDS ORDERED: SUBLIMAZE ONE (16:29)
[2017-07-10] MEDS ORDERED: VERSED ONE (16:29)
[2017-07-10] MEDS ORDERED: NITROGLYCERIN SYRINGE 3 ML ONE (16:30)
[2017-07-10] MEDS ORDERED: NON-FORMULARY (Oxycodone Hcl/Acetaminophen [Percocet 10/325 Mg] 1 EACH) PO PRN (16:36)
[2017-07-10] MEDS ORDERED: ZOFRAN IV PRN (16:40)
[2017-07-10] MEDS ORDERED: NARCAN 0.4 MG/1 ML IV PRN (16:40)
[2017-07-10] MEDS ORDERED: NACL 0.9% 1000 ML 1,000 ML IV SCH (17:00)
[2017-07-10] MEDS ORDERED: NITRO-BID 2% TP ONE (17:26)
--- NOTE | 2017-07-10 17:51 | Short Stay Summary ---
Short Stay Documentation Date of service: 07/10/17 Narrative H&P: 67-year-old female who previously presented with ischemic left lower extremity status post multiple procedures for revascularization which ultimately failed resulting in a nonsalvageable left lower extremity which will require an above- knee amputation. Additionally, the patient was found to be hypercoagulable secondary to pancreatic cancer which was discovered incidentally on CT scan. She now presents with an ischemic right lower extremity. - History Principal diagnosis: Ischemic RLE H&P: obtained from office Past Medical History: cancer, PVD - Allergies and Medications Current Medications: Allergies lisinopril Allergy (Verified 09/18/16 17:14) Rash Home Medications Medication Instructions Recorded Confirmed Last Taken Type AtorvaSTATin [Lipitor] 20 mg PO DAILY 08/26/16 07/10/17 07/09/17 History Clopidogrel Bisulfate [Clopidogrel] 75 mg PO DAILY 08/26/16 07/10/17 07/10/17 07 :00 History Apixaban [Eliquis] 5 mg PO Q12HR #60 tablet 08/30/16 07/10/17 07/09/17 08:00 Rx Gabapentin 100 mg PO TID 05/22/17 07/10/17 07/10/17 07:00 History Cilostazol [Pletal] 100 mg PO BID #60 tablet 06/05/17 07/10/17 07/10/17 07:00 Rx Oxycodone HCl/Acetaminophen 1 each PO Q6HR PRN 07/10/17 07/10/17 07/09/17 History [Percocet 10/325 mg] Active Medications Atorvastatin Calcium (Lipitor) 20 mg PO QHS [facility] Clopidogrel Bisulfate (Plavix) 75 mg PO DAILY [facility] Gabapentin (Neurontin) 100 mg PO TID [facility] Cefazolin Sodium (Ancef/Sterile Water 2 Gm/20 Ml) 2 gm in 20 mls @ 80 mls/hr IV PREOP NR PRN Reason: Protocol Stop: 07/10/17 23:00 Last Admin: 07/10/17 13:42 Dose: 20 mls Sodium Chloride (Nacl 0.9% 500 Ml) 500 mls @ 50 mls/hr IV DIRECT [facility] Last Admin: 07/10/17 10:35 Dose: 50 mls/hr Sodium Chloride (Nacl 0.9% 1000 Ml) 1,000 mls @ 75 mls/hr IV DIRECT [facility] Stop: 07/10/17 20:59 Heparin Sodium/Sodium Chloride (Heparin/ 0.45% Nacl-25,000 Unit/500 Ml) 25,000 unit in 500 mls @ 16 mls/hr IV TITR [facility]NEY; 800 UNITS/HR PRN Reason: Protocol Naloxone HCl (Narcan 0.4 Mg/1 Ml) 0.1 mg IV Q2MIN PRN PRN Reason: Res Rate </= 8 or 02 SAT < 92% Ondansetron HCl (Zofran) 4 mg IV Q8H PRN PRN Reason: Nausea And Vomiting Oxycodone HCl (Roxicodone) 5 mg PO Q6H PRN PRN Reason: Pain, Moderate (4-6) Oxycodone/Acetaminophen (Percocet 5/325) 1 tab PO Q6H PRN PRN Reason: Pain, Moderate (4-6) - Physical exam General appearance: severe distress (right and left lower extremity ischemic pain) Lungs: Normal air movement Gastrointestinal: normal Extremities: no pulses intact, no pulses symmetrical, abnormal (palpable left [employer], nonpalpable right [employer], nonpalpable pedal pulses) - Brief post op/procedure progress note Date of procedure: 07/10/17 Pre-op diagnosis: Ischemic RLE Post-op diagnosis: same Procedure: 1. Ultrasound-guided axis of the left common femoral artery. 2. Angiography of the left lower extremity. 3. Selection of the abdominal aorta with angiography 4. Selection of the right external iliac artery, superficial femoral artery, and popliteal artery with angiography of the right lower extremity 5. 10 mg pulse spray tPA infusion of the right common femoral artery 6. 6 [place] AngioJet mechanical thrombectomy of the right common femoral artery 7. Angioplasty of the right common femoral artery with a 5 mm angioplasty balloon 8. Angioplasty of the right common femoral artery with a 5 mm drug coated angioplasty balloon (pass through code required) 9. Selection of the posterior tibial artery 10. Infusion of a total of 6 mg of tPA in the posterior tibial artery 11. 3 [place] penumbra indigo aspiration thrombectomy of the posterior tibial artery 12. Angioplasty of the posterior tibial artery with a tapered 2-2.5 mm angioplasty balloon 13. Selection of the anterior tibial artery 14. Infusion of a total of 6 mg in the anterior tibial artery 15. 3 [place] penumbra indigo aspiration thrombectomy of the anterior tibial artery 16. Angioplasty of the anterior tibial artery with a tapered 2-2.5 mm angioplasty balloon 17. Closure of the left common femoral artery with a 6 [place] Mynx device Anesthesia: local (w/ conscious sedation) - Hospital course Hospital course: The patient was evaluated the next day and found to have a palpable right dorsalis pedis pulse, and a nonpalpable right posterior tibial pulse. The posterior tibial pulse could be dopplered. Both common femoral arteries were palpable. The patient's right lower correction of the pain had mostly resolved. She was allowed to ambulate with a rolling walker and was able to ambulate for a few feet without issue. She was restarted back on her home anticoagulation and 2 hours later, her heparin drip was discontinued. The patient has endstage pancreatic cancer and therefore her short term wishes are important. I had a long discussion about whether she preferred to stay as an inpatient until her planned left above-knee amputation on Friday for left leg pain control, or would prefer discharge. She would prefer discharge with planned left above-knee amputation for pain control on Friday. She was told to not discontinue her anticoagulation for the amputation. - Disposition Condition at discharge: Stable Disposition: DC-01 TO HOME OR SELFCARE - Discharge Diagnoses (1) Rest pain of right lower extremity concurrent with and due to atherosclerosis of bypass graft Status: Acute (2) Arterial occlusion Status: Acute (3) Pancreatic cancer metastasized to liver Status: Acute Short Stay Discharge Plan Activity: advance as tolerated Weight Bearing Status: Weight Bear as Tolerated Diet: regular Wound: keep clean and dry Follow up with: DEMETRIA WHITE MD [Primary Care Provider] - 7 Days
--- NOTE | 2017-07-10 18:00 | Post Operative Note ---
Date of procedure: 07/10/17 Pre-op diagnosis: Ishemic RLE Post-op diagnosis: same Findings: At the conclusion of the procedure, the right common femoral artery was palpable. The right posterior tibial artery was palpable and the right anterior tibial artery was weakly palpable. Procedure: 1. Ultrasound-guided axis of the left common femoral artery. 2. Angiography of the left lower extremity. 3. Selection of the abdominal aorta with angiography 4. Selection of the right external iliac artery, superficial femoral artery, and popliteal artery with angiography of the right lower extremity 5. 10 mg pulse spray tPA infusion of the right common femoral artery 6. 6 [place] AngioJet mechanical thrombectomy of the right common femoral artery 7. Angioplasty of the right common femoral artery with a 5 mm angioplasty balloon 8. Angioplasty of the right common femoral artery with a 5 mm drug coated angioplasty balloon (pass through code required) 9. Selection of the posterior tibial artery 10. Infusion of a total of 6 mg of tPA in the posterior tibial artery 11. 3 Spanish penumbra indigo aspiration thrombectomy of the posterior tibial artery 12. Angioplasty of the posterior tibial artery with a tapered 2-2.5 mm angioplasty balloon 13. Selection of the anterior tibial artery 14. Infusion of a total of 6 mg in the anterior tibial artery 15. 3 Spanish penumbra indigo aspiration thrombectomy of the anterior tibial artery 16. Angioplasty of the anterior tibial artery with a tapered 2-2.5 mm angioplasty balloon 17. Closure of the left common femoral artery with a 6 Spanish Mynx device Anesthesia: local (w/ conscious sedation) Surgeon: ANGELIQUE STEVENSON Estimated blood loss: minimal Condition: stable Disposition: floor
--- NOTE | 2017-07-10 18:06 | Operative Report ---
Operative Report Operative Report: EXAM: 1. Ultrasound-guided access of the left common femoral artery. 2. Angiography of the left lower extremity. 3. Selection of the abdominal aorta with angiography 4. Selection of the right external iliac artery, superficial femoral artery, and popliteal artery with angiography of the right lower extremity 5. 10 mg pulse spray tPA infusion of the right common femoral artery 6. 6 [place] AngioJet mechanical thrombectomy of the right common femoral artery 7. Angioplasty of the right common femoral artery with a 5 mm angioplasty balloon 8. Angioplasty of the right common femoral artery with a 5 mm drug coated angioplasty balloon (pass through code required) 9. Selection of the posterior tibial artery 10. Infusion of a total of 6 mg of tPA in the posterior tibial artery 11. 3 [place] penumbra indigo aspiration thrombectomy of the posterior tibial artery 12. Angioplasty of the posterior tibial artery with a tapered 2-2.5 mm angioplasty balloon 13. Selection of the anterior tibial artery 14. Infusion of a total of 6 mg in the anterior tibial artery 15. 3 [place] penumbra indigo aspiration thrombectomy of the anterior tibial artery 16. Angioplasty of the anterior tibial artery with a tapered 2-2.5 mm angioplasty balloon 17. Stenting of the right external iliac artery with a 8 mm x 10 cm VIABAHN stent graft with post dilation with a 6 mm and 7 mm angioplasty balloon 18. Stenting of the right common iliac artery with a 8 mm x 29 mm VBX of the proximal common iliac artery 19. Stenting of the right common iliac artery with a 8 mm x 29 mm VBX of the distal common iliac artery 20. Closure of the left common femoral artery with a 6 [place] Mynx device DATE: 07/10/17 [employer] AUTHORING SPECIALIST: ANGELIQUE STEVENSON MD INDICATION: Ischemic right lower extremity with threatened limb. History of pancreatic cancer with unsalvageable left lower extremity. MEDICATIONS: Please see nursing report for full details. DEVICES: 6 [place] AngioJet CAT3 indigo penumbra SEP3 x 2 6 [place] Mynx 22 mg of TPA 5 mm angioplasty balloon 5 mm x 80 mm INPACT DCB (Pass through code required) 2.0-2.5 mm tapered nanocross angioplasty balloon VIABAHN 8 mm x 10 cm STENT-GRAFT VBX 8 mm x 29 mm STENT-GRAFT (x2) CONTRAST: Please see civil laboratory technician report for full details. PROCEDURE: The risks, benefits, and alternatives were discussed with the patient; written informed consent obtained. The patient was brought to angiography and her groins were prepped and draped in a sterile fashion. Left common femoral artery was evaluated with ultrasound and was patent. Under direct ultrasound guidance, the left common femoral artery was accessed with a 21-gauge micropuncture needle. 0.018 inch wire was passed into the aorta. Needle was exchanged for transitional dilator. Wire was exchanged for 0.035 inch wire. Transitional dilator was exchanged for a 5 [place] sheath. Digital subtraction angiography was performed demonstrating a severe narrowing within the midportion of the common femoral artery. The punctured portion of the common femoral artery had a moderate narrowing, but the punctured portion was about 5 mm in size. External iliac artery was predominantly patent except for an area of mild narrowing at the midportion of the vessel. The proximal left external iliac artery was stented. The left proximal superficial femoral artery was occluded. The left profunda femoral artery was patent. The punctured site was above the bifurcation and below the inferior epigastric artery, and appropriate puncture. Catheter was advanced over the wire and placed into the abdominal aorta. Digital subtraction angiography demonstrated a moderate 50% narrowing of the infrarenal abdominal aorta. The left common iliac artery was mild to moderately diffusely narrowed. The right common iliac artery had a focal moderate to severe irregularity within the proximal third of the vessel. The distal third of the vessel had a focal mild to moderate narrowing. The external iliac artery was dissected and there is a small amount of irregular thrombus within. The internal iliac artery was patent. Catheter was used to select the right external iliac artery and digital subtraction angiography was performed demonstrating the dissection of the right external iliac artery with a small amount of thrombus within it. The right common femoral artery was completely occluded. The proximal superficial femoral artery was patent. The proximal profunda femoral artery was patent. There is thrombus in the distal portion of the profunda femoral artery. The proximal superficial femoral artery was patent. Catheter was used to cross the thrombosed right common femoral artery. The catheter was used to select the superficial femoral artery. Digital subtraction angiography was performed demonstrating the superficial femoral artery was patent throughout the rest of the course. The popliteal artery was then selected. The popliteal artery was patent. The anterior tibial artery was occluded distally, but the proximal and mid portions were patent. The tibioperoneal trunk was patent. The midportion of the peroneal artery was occluded. The proximal portion was patent. The distal and mid posterior tibial artery was occluded in the proximal portion was patient. It appeared that the patient had embolized down the foot and had embolically trashed the foot. 0.035 inch wire was passed into the popliteal artery. Sheath was exchanged for a 7 [place] 45 cm [place] destination positioned in the right external iliac artery. 6 mm spider embolic protection device was placed into the mid superficial femoral artery. 10 mg of TPA was pulse spray infused through 6 [place] AngioJet into the right common femoral artery. 20 minute dwell time was allowed. Mechanical thrombectomy was then performed to the right common femoral artery. Digital subtraction angiography was performed demonstrating clearance of nearly all the thrombus in the right common femoral artery. 5 mm angioplasty balloon was used to dilate the common femoral artery. Digital subtraction angiography demonstrated a minimal amount of residual thrombus. A short 6 mm drug-coated balloon was unavailable, and therefore a longer 5 mm drug-coated balloon was used to perform prolonged angioplasty of the right common femoral artery. Digital subtraction angiography demonstrated minimal residual narrowing. There was some debris within the embolic protection device compatible with dislodged thrombus. The embolic protection device was then removed with the assistance of a 6 [place] guide. All debris was retrieved. Catheter was used to select the superficial femoral artery. There is mild spasm in the vessel. Some nitroglycerin was injected. Sheath was advanced over the wire into the proximal superficial femoral artery. Catheter was advanced over the wire and used to select the posterior tibial artery. Digital subtraction angiography demonstrated the occlusion within the midportion of the posterior tibial artery without reconstitution and the foot. Wires and catheters were used to cross the occlusion into the lateral plantar artery. 4mg of TPA was infused into the posterior tibial and lateral plantar artery. 10 minute dwell time was allowed. CAT 3 penumbra indigo device was used with a SEP 3 device and used to perform mechanical thrombectomy of the lateral plantar artery and posterior tibial artery. After this was performed, a 0.014 inch wire was passed into the lateral plantar artery and a 2-2.5 mm down across angioplasty balloon was advanced over the wire and used to perform angioplasty of the lateral plantar artery into the posterior tibial artery. The 2.5 mm angioplasty portion of the balloon was used to perform repeat angioplasty throughout the posterior tibial artery Digital subtraction angiography was performed demonstrating that there was now flow passing into the lateral plantar artery. The posterior tibial artery was mostly patent, but the lateral plantar artery at the level of the ankle was irregular, suggestive of residual thrombus. There was flow into the foot. I selected the portion of the lateral plantar artery at the level of the ankle and injected 2 mg of tPA. I then selected the anterior tibial artery. Digital subtraction angiography was performed demonstrating that the vessel was patent until the dorsalis pedis and distal anterior tibial artery which were occluded. 4 mg of TPA were injected throughout the occluded portion of the distal anterior tibial artery and dorsalis pedis. 10 minute dwell time was allowed. CAT 3 penumbra indigo device was used with a SEP 3 device and used to perform mechanical thrombectomy of the dorsalis pedis and distal anterior tibial artery. After this was performed, a 0.014 inch wire was passed into the dorsalis pedis artery and a 2-2.5 mm down across angioplasty balloon was advanced over the wire and used to perform angioplasty of the dorsalis pedis artery into the distal anterior tibial artery. Digital subtraction angiography was performed demonstrating spasm of the distal anterior tibial artery and dorsalis pedis. Nitroglycerin was injected and repeat angioplasty was performed. The anterior tibial artery was now patent, with the dorsalis pedis was still partially occluded. I selected the dorsalis pedis artery and injected 2 mg of TPA in this. Then exchange wires for V 18 wire and passed this into the superficial femoral artery. I deployed a 8 mm x 10 cm Viabahn stent graft across the dissected and partially thrombosed external iliac artery. I then deployed a 8 mm x 29 mm VBX stent graft across the proximal right common iliac artery. Post dilated the stent graft with a 6 mm angioplasty balloon, and then a 7 mm angioplasty balloon. Digital subtraction angiography was performed demonstrating some mild narrowing of the distal common iliac artery, but excellent appearance of the external iliac artery and the talks more common iliac artery. I then deployed an 8 mm x 29 mm VBX stent graft across the distal right common iliac artery. Digital subtraction angiography demonstrated no residual narrowing of the common iliac artery without any flow limitation, patency of the right internal iliac and no residual narrowing of the right external iliac artery. There is prompt flow into the right common femoral artery. At this point, all wires, catheters, and sheaths were retracted to the left external iliac artery. I exchange this sheath for a standard 7 [place] sheath. The mynx device was then successfully deployed under fluoroscopy with contrast used in the device. Although the Mynx device was successful, part of the mynx compound was external to the patient. When the mynx compound was manipulated, bleeding occurred and therefore pressure was held until hemostasis was achieved. The mynx compound was then removed from the arteriotomy and a pressure bandage was applied. The patient tolerated the procedure well. No immediate postprocedural complication. Nitro paste applied to the right foot. The patient had a weakly palpable right posterior tibial pulse and a strongly dopplerable right dorsalis pedis pulse at the conclusion of the procedure. Both common femoral arteries were palpable. Patient was transferred to the floor for monitoring and heparin drip was initiated. FINDINGS: Please see civil laboratory technician report above. IMPRESSION: 1. Successful primary mechanical thrombectomy of the right common femoral artery, anterior tibial artery, and posterior tibial artery. 2. Successful stenting of the right common iliac artery. 3. Successful stenting of the right external iliac artery. 4. Successful angioplasty of the right common femoral artery. 5. Successful angioplasty of the right posterior tibial artery. 6. Successful angioplasty of the right anterior tibial artery.
[2017-07-10 19:17] LABS: Hematocrit 34.8 % (30.3-42.9); Hemoglobin 10.9 gm/dl (10.1-14.3)
[2017-07-10 19:29] LABS: INR 1.51 (0.87-1.13)
[2017-07-10 19:43] LABS: Partial Thromboplastin Time 66.7 Sec. (24.2-36.6)
[2017-07-10] MEDS ORDERED: NON-FORMULARY (Gabapentin 100 MG) PO SCH (20:00)
[2017-07-10] MEDS ORDERED: HEPARIN/ 0.45% NACL-25,000 UNIT/500 ML 25,000 UNIT/500 ML BAG IV SCH ×2 (21:00→21:30)
[2017-07-10] MEDS ORDERED: PLETAL PO SCH (22:00)
[2017-07-10] MEDS: NEURONTIN PO SCH (23:25)
[2017-07-11] MEDS: ROXICODONE PO PRN ×3 (03:34→15:59)
[2017-07-11] MEDS: PERCOCET 5/325 PO PRN ×3 (03:34→15:59)
[2017-07-11] MEDS: NEURONTIN PO SCH ×2 (09:45→16:00)
[2017-07-11] MEDS ORDERED: PLAVIX PO SCH (10:00)
[2017-07-11] MEDS ORDERED: ELIQUIS PO SCH ×2 (10:00→12:00)
--- NOTE | 2017-07-11 14:55 | Vascular Lab Report ---
LOWER EXTREMITY ARTERIAL DUPLEX: REASON FOR EXAM: Right lower extremity ischemia. COMMENTS ON THE RIGHT: Monophasic waveforms are seen proximally. There is occlusion of the right common femoral artery. Monophasic waveforms are seen distally. There is severely decreased velocities (7 cm/s in INFORMATION SYSTEMS SECURITY ANALYST ; 19 cm/s in HECTOR) within the tibial arteries with flat waveforms. No significant velocity gradients are identified. Findings are consistent with abnormal perfusion. Findings are not compatible with the ability to heal distal wounds. LIMITED COMMENTS ON THE LEFT: Monophasic waveforms are seen distally. Tibial velocities are extremely low (6 cm/s in INFORMATION SYSTEMS SECURITY ANALYST ; 12 cm/s in HECTOR). Findings are consistent with abnormal perfusion. Findings are not compatible with the ability to heal distal wounds. 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
[2017-07-11 17:25] VITALS: BP 121/64
== END 2017-07-11 16:50 | disposition home or self-care (01) | DRG 271 ==
LOC: CATHLABREC 08:43 → 3B-SURG 16:33
PROVIDERS: ADMIT Radiology Diagnostic Radiology; ATTEND Radiology Diagnostic Radiology
PROC: 04CK3ZZ Extirpation of Matter from Right Femoral Artery, Percutaneous Approach (ICD-10-PCS; principal; 2017-07-10)
PROC: 04CR3ZZ Extirpation of Matter from Right Posterior Tibial Artery, Percutaneous Approach (ICD-10-PCS; 2017-07-10)
PROC: 04CP3ZZ Extirpation of Matter from Right Anterior Tibial Artery, Percutaneous Approach (ICD-10-PCS; 2017-07-10)
PROC: 047K3Z1 Dilation of Right Femoral Artery using Drug-Coated Balloon, Percutaneous Approach (ICD-10-PCS; 2017-07-10)
PROC: 047R3ZZ Dilation of Right Posterior Tibial Artery, Percutaneous Approach (ICD-10-PCS; 2017-07-10)
PROC: 047P3ZZ Dilation of Right Anterior Tibial Artery, Percutaneous Approach (ICD-10-PCS; 2017-07-10)
PROC: 047H34Z Dilation of Right External Iliac Artery with Drug-eluting Intraluminal Device, Percutaneous Approach (ICD-10-PCS; 2017-07-10)
PROC: 047C34Z Dilation of Right Common Iliac Artery with Drug-eluting Intraluminal Device, Percutaneous Approach (ICD-10-PCS; 2017-07-10)
PROC: 047C34Z Dilation of Right Common Iliac Artery with Drug-eluting Intraluminal Device, Percutaneous Approach (ICD-10-PCS; 2017-07-10)
PROC: B4101ZZ Fluoroscopy of Abdominal Aorta using Low Osmolar Contrast (ICD-10-PCS; 2017-07-10)
PROC: B41F1ZZ Fluoroscopy of Right Lower Extremity Arteries using Low Osmolar Contrast (ICD-10-PCS; 2017-07-10)
PROC: B41G1ZZ Fluoroscopy of Left Lower Extremity Arteries using Low Osmolar Contrast (ICD-10-PCS; 2017-07-10)
PROC: 3E05317 Introduction of Other Thrombolytic into Peripheral Artery, Percutaneous Approach (ICD-10-PCS; 2017-07-10)
DX: I70.301 Unspecified atherosclerosis of unspecified type of bypass graft(s) of the extremities, right leg (principal); C25.9 Malignant neoplasm of pancreas, unspecified; C78.7 Secondary malignant neoplasm of liver and intrahepatic bile duct; I70.245 Atherosclerosis of native arteries of left leg with ulceration of other part of foot; I25.10 Atherosclerotic heart disease of native coronary artery without angina pectoris; E11.9 Type 2 diabetes mellitus without complications; I10 Essential (primary) hypertension; E78.5 Hyperlipidemia, unspecified; F17.210 Nicotine dependence, cigarettes, uncomplicated; Z83.3 Family history of diabetes mellitus; Z89.422 Acquired absence of other left toe(s); Z82.49 Family history of ischemic heart disease and other diseases of the circulatory system; Z80.1 Family history of malignant neoplasm of trachea, bronchus and lung; Z88.5 Allergy status to narcotic agent
CPT/HCPCS: 36415; 37184; 37185; 37221; 37223; 37224; 37228; 37232; 75625; 75716; 80048; 82962; 85014; 85018; 85025; 85049; 85520; 85610; 85730; A9270-GY; C1725; C1757; C1769; C1884; C1887; C1894; J0690; J1200; J1644; J2250; J2930; J2997; J3010; J7040; Q9967

== ENCOUNTER 2017-07-15 06:14 | Inpatient (IN) | payer MEDICARE ==
[~2017-07-15 06:14] MED LIST changes: -NACL 0.9% 1000 ML 1,000 ML IV SCH
[2017-07-15] MEDS ORDERED: NACL BACTERIOSTATIC INFILTRATI ONE (06:22)
--- NOTE | 2017-07-15 07:06 | Anesthesia Day of Surgery ---
Anesthesia Day of Surgery - Day of Surgery Patient Examined: Yes Patient H&P Reviewed: Yes Patient is NPO: Yes
--- NOTE | 2017-07-15 07:06 | Anesthesia Consultation ---
Anesthesia Consult and Med Hx Date of service: 07/15/17 - Airway Anesthetic Teeth Evaluation: Edentulous ROM Head & Neck: Adequate Mental/Hyoid Distance: Adequate Mallampati Class: Class I Intubation Access Assessment: Good - Pulmonary Exam CTA: Yes - Cardiac Exam Cardiac Exam: RRR - Pre-Operative Health Status ASA Pre-Surgery Classification: ASA4 Proposed Anesthetic Plan: General - Pre-Anesthesia Comment Pre-Anesthesia Comments: Pt refuses regional anesthesia - Pulmonary Hx Smoking: Yes (1 ppd at present) Hx Asthma: No COPD: Yes Home Oxygen Therapy: No Hx Sleep Apnea: No - Cardiovascular System Hx Hypertension: No Hx Coronary Artery Disease: No Hx Heart Attack/AMI: No Hx Pacemaker: No Hx Peripheral Vascular Disease: Yes (multiple LE surgeries) - Central Nervous System CVA: No Hx Psychiatric Problems: No - Endocrine Hx Non-Insulin Dependent Diabetes: Yes - Other Systems Hx Alcohol Use: Yes (quit) Hx Cancer: Yes
[2017-07-15] MEDS: NACL 0.9% 1000 ML 1,000 ML IV SCH ×3 (07:10→23:58)
[2017-07-15] MEDS ORDERED: SUBLIMAZE ONE (07:29)
[2017-07-15] MEDS ORDERED: DIPRIVAN 10 MG/ML IV ONE (07:29)
[2017-07-15 07:47] LABS: INR 2.32 (0.87-1.13)
[2017-07-15] MEDS ORDERED: MARCAINE 0.5% 30 ML INFILTRATI ONE (07:57)
[2017-07-15] MEDS ORDERED: MARCAINE 0.25% INFILTRATI ONE (07:57)
[2017-07-15] MEDS ORDERED: PEPCID IV NR (08:00)
[2017-07-15] MEDS ORDERED: XYLOCAINE MPF 2% ONE (08:00)
[2017-07-15] MEDS ORDERED: PROVENTIL IH NR (08:00)
[2017-07-15] MEDS ORDERED: ROBINUL ONE (08:41)
[2017-07-15] MEDS ORDERED: NEO SYNEPHRINE ONE (08:41)
[2017-07-15] MEDS ORDERED: NACL 0.9% 100 ML ONE (08:41)
[2017-07-15] MEDS ORDERED: DECADRON ONE (08:42)
[2017-07-15] MEDS ORDERED: ZOFRAN ONE (08:42)
[2017-07-15] MEDS ORDERED: DILAUDID ONE (08:46)
[2017-07-15] MEDS ORDERED: NACL 0.9% IR ONE (09:08)
[2017-07-15] MEDS ORDERED: MARCAINE 0.5% INFILTRATI ONE (09:08)
--- NOTE | 2017-07-15 09:28 | Operative Report ---
Operative Report Operative Report: Date of procedure: 07/15/2017 Pre-operative diagnosis: Pancreatic Cancer with Hypercoagulable State and Left Lower Extremity Ischemia Post-operative diagnosis: Same Procedure(s): Left Above-Knee Amputation Surgeon: Olivier Thompson MD [place] General: None Anesthesia: General Endotracheal Anesthesia EBL: 100 mL Counts: Correct Complications: None Condition: Stable Findings: Left lower extremity ischemia Specimen: Left leg sent to pathology Indication: The patient is a 67-year-old female with a history of left lower extremity ischemia. She initially presented to us approximately one year ago with an embolus to her left lower extremity that was treated with thrombolysis. She eventually required a TMA and anticoagulation. Over the past several months she has required multiple interventions and eventually underwent a CT of her abdomen and pelvis that demonstrated a pancreatic mass with what appeared to be metastasis to the liver. This was confirmed to be metastatic pancreatic cancer by biopsy. She has significant rest pain in the left lower extremity and no options for revascularization. She is in need of an above-knee amputation to control her pain. She was given the risks, benefits, and alternative procedures and consented to the procedure. Description of Procedure: The patient was brought to the operating room and laid in supine position after general endotracheal anesthesia was achieved his left leg was prepped and draped in normal sterile fashion. [place] incision was created approximately 3 fingerbreadths above the patella and carried down to the femur using electrocautery. The femur was dissected out circumferentially and the neurovascular bundle was identified and controlled with Niurka clamps. Periosteal elevator was then used to elevate the periosteum an oscillating saw was then used to transect the femur approximately 4 cm above the incision. The remaining muscle and soft tissue was divided with electrocautery. The artery and vein were then suture ligated and divided and then I'll perform high ligation of the nerve. Hemostasis was achieved with a combination of electrocautery and suture ligation. Once hemostasis was achieved the femur was smoothed with a rasp and the wound was copiously irrigated. I then anesthetized the wound with Exparel. I closed the wound in 2 layers using 0 Vicryl in interrupted fashion to reapproximate the fascia and erica to close the skin. I dressed the wound with Xeroform gauze, fluffs, ABDs, Kerlix, and an Guido bandage. The patient tolerated the procedure well, all sponge needle and sponge counts correct, the patient was taken to the recovery area stable condition.
[2017-07-15] MEDS ORDERED: METFORMIN HCL 750 MG PO SCH (10:00)
[2017-07-15] MEDS ORDERED: ANCEF/NS 1 GM/50 ML 1 GM/50 ML BAG IV SCH ×2 (10:00→15:00)
[2017-07-15] MEDS: TORADOL IV SCH ×3 (11:21→23:57)
[2017-07-15] MEDS: NOVOLOG SUB-Q SCH ×3 (12:00→22:10)
[2017-07-15] MEDS: MORPHINE IV PRN (12:27)
[2017-07-15] MEDS ORDERED: NON-FORMULARY (Gabapentin 100 MG) PO SCH (14:00)
[2017-07-15] MEDS: PLETAL PO SCH ×2 (15:11→22:09)
[2017-07-15] MEDS: PLAVIX PO SCH (15:11)
[2017-07-15] MEDS: ELIQUIS PO SCH ×2 (15:11→22:08)
[2017-07-15] MEDS: NEURONTIN PO SCH ×2 (15:12→22:12)
[2017-07-15] MEDS: ceFAZolin 1 GM in NACL 0.9% 20 ML IV SCH ×2 (17:56→22:07)
[2017-07-15] MEDS: GLUCOPHAGE XR PO SCH (18:03)
[2017-07-16] MEDS: ceFAZolin 1 GM in NACL 0.9% 20 ML IV SCH (02:36)
[2017-07-16 04:45] LABS: Hematocrit 29.5 % (30.3-42.9); Hemoglobin 9.5 gm/dl (10.1-14.3)
[2017-07-16 04:55] LABS: BUN/Creatinine Ratio 37; Blood Urea Nitrogen 11 mg/dL (7-17); Calcium 7.2 mg/dL (8.4-10.2); Hemolysis Index 3
[2017-07-16] MEDS: TORADOL IV SCH ×3 (06:05→17:24)
[2017-07-16] MEDS: NOVOLOG SUB-Q SCH ×4 (08:27→22:48)
[2017-07-16] MEDS: NEURONTIN PO SCH ×3 (08:45→21:00)
[2017-07-16] MEDS: GLUCOPHAGE XR PO SCH ×2 (08:45→16:29)
[2017-07-16] MEDS ORDERED: LOVENOX SUB-Q SCH (10:00)
[2017-07-16] MEDS: ELIQUIS PO SCH ×2 (11:35→21:00)
[2017-07-16] MEDS: PLETAL PO SCH ×2 (11:38→21:00)
[2017-07-16] MEDS: PLAVIX PO SCH (11:38)
--- NOTE | 2017-07-16 13:24 | Progress Note ---
Assessment and Plan Pt s/p LLE AKA. Pt c/o post-op nausea associated with narcotic use. Will check wounds in the next 24-48 hrs. PT/OT consulted. Therapy in progress. D/c planning for PT/OT ordered. - Patient Problems (1) Ischemia of left lower extremity Current Visit: Yes Status: Acute Subjective Date of service: 07/16/17 Interval history: Pt awake and alert. C/o post-op nausea. Pain 5 of 10, but tolerable. Objective - Constitutional Vitals: Vital Signs - 12hr 07/16/17 07/16/17 07/16/17 04:53 04:54 07:23 Temperature 98.9 F 99.0 F Pulse Rate 79 79 79 Respiratory 18 18 Rate Blood Pressure 130/67 O2 Sat by Pulse 95 95 94 Oximetry 07/16/17 07/16/17 07:32 11:13 Temperature 99.0 F 98.6 F Pulse Rate 71 70 Respiratory 18 16 Rate Blood Pressure 138/70 144/62 O2 Sat by Pulse 92 95 Oximetry General appearance: Present: no acute distress - EENT Eyes: EOM intact ENT: hearing intact - Neck Neck: supple - Respiratory Respiratory effort: normal Extremities: normal temperature, abnormal (LLE AKA - bandages C,D,and I. ) - Neurologic Neurologic: no focal deficits - Psychiatric Psychiatric: appropriate mood/affect, intact judgment & insight, cooperative - Labs CBC & Chem 7: 07/16/17 04:20 07/16/17 04:20 Labs: Abnormal lab results 07/15/17 07/15/17 07/16/17 Range/Units 16:17 22:07 04:20 Hgb 9.5 L (10.1-14.3) gm/dl Hct 29.5 L (30.3-42.9) % Sodium (137-145) mmol/L Creatinine (0.7-1.2) mg/dL Glucose (65-100) mg/dL POC Glucose 147 H 172 H (70-105) Calcium (8.4-10.2) mg/dL 07/16/17 07/16/17 07/16/17 Range/Units 04:20 07:26 11:18 Hgb (10.1-14.3) gm/dl Hct (30.3-42.9) % Sodium 134 L (137-145) mmol/L Creatinine 0.3 L (0.7-1.2) mg/dL Glucose 133 H (65-100) mg/dL POC Glucose 136 H 158 H (70-105) Calcium 7.2 L (8.4-10.2) mg/dL
[2017-07-16] MEDS: MORPHINE IV PRN ×2 (14:46→23:01)
[2017-07-16] MEDS: NACL 0.9% 1000 ML 1,000 ML IV SCH (21:01)
[2017-07-17] MEDS: TORADOL IV SCH ×4 (00:24→17:04)
[2017-07-17] MEDS: MORPHINE IV PRN (05:10)
[2017-07-17] MEDS: NOVOLOG SUB-Q SCH ×3 (09:30→16:58)
[2017-07-17] MEDS: GLUCOPHAGE XR PO SCH ×2 (09:39→17:05)
[2017-07-17] MEDS: PLAVIX PO SCH (09:39)
[2017-07-17] MEDS: ELIQUIS PO SCH ×2 (09:39→22:13)
[2017-07-17] MEDS: NEURONTIN PO SCH ×3 (09:39→22:14)
[2017-07-17] MEDS: PLETAL PO SCH ×2 (09:40→22:12)
--- NOTE | 2017-07-17 17:09 | Progress Note ---
Assessment and Plan Patient is status post a left [id number] amputation. Her wounds appear to be doing well. Discharge planning in progress for DME and home health therapy. Encouraged patient to use oral analgesics from early. Continue inpatient PT/OT. - Patient Problems (1) Ischemia of left lower extremity Current Visit: Yes Status: Acute Subjective Date of service: 07/17/17 Interval history: Patient is awake and alert. She states the pain is better today than it was yesterday. Objective - Constitutional Vitals: Vital Signs - 12hr 07/17/17 07/17/17 07/17/17 05:10 07:45 10:19 Temperature 98.7 F Pulse Rate 92 H Respiratory 18 18 18 Rate Blood Pressure 136/76 O2 Sat by Pulse 96 Oximetry 07/17/17 12:06 Temperature 99.0 F Pulse Rate 80 Respiratory 18 Rate Blood Pressure 126/70 O2 Sat by Pulse 94 Oximetry General appearance: Present: no acute distress - EENT Eyes: EOM intact ENT: hearing intact - Neck Neck: supple - Respiratory Respiratory effort: normal Extremities: abnormal (left [id number] amputation bandages removed, incision intact, erica in place, no erythema or drainage appreciated) - Neurologic Neurologic: no focal deficits - Psychiatric Psychiatric: appropriate mood/affect, intact judgment & insight, cooperative - Labs CBC & Chem 7: 07/16/17 04:20 07/16/17 04:20 Labs: Abnormal lab results 07/17/17 07/17/17 Range/Units 09:15 12:10 POC Glucose 157 H 117 H (70-105)
[2017-07-17] MEDS: PERCOCET 5/325 PO PRN ×2 (18:05→23:54)
[2017-07-18] MEDS: NOVOLOG SUB-Q SCH ×4 (00:01→22:45)
[2017-07-18] MEDS: TORADOL IV SCH ×2 (00:04→12:54)
[2017-07-18] MEDS: NEURONTIN PO SCH ×3 (08:15→23:09)
[2017-07-18] MEDS: GLUCOPHAGE XR PO SCH (08:15)
[2017-07-18] MEDS: PLETAL PO SCH ×2 (09:45→23:09)
[2017-07-18] MEDS: PLAVIX PO SCH (09:45)
[2017-07-18] MEDS: ELIQUIS PO SCH ×2 (09:45→23:09)
[2017-07-18] MEDS: MORPHINE IV PRN (15:11)
--- NOTE | 2017-07-18 15:13 | Discharge Summary ---
Providers - Providers Date of Admission: 07/15/17 06:14 Date of discharge: 07/18/17 Attending physician: JOANNE THOMPSON 07/15/17 Consult to Case Management [CONS] Routine Services Needed at Discharge: DME Equipment Physical Therapy Occupational Therapy Home Health Services Occupational Therapy Evaluate and Treat [CONS] Routine Comment: Reason For Exam: s/p amputation Physical Therapy Evaluation and Treat [CONS] Routine Comment: Reason For Exam: s/p amputation Primary care physician: DEMETRIA WHITE Hospitalization Reason for admission: PVD with gangrene and rest pain Condition: Stable Procedures: Operative Report Operative Report: Date of procedure: 07/15/2017 Pre-operative diagnosis: Pancreatic Cancer with Hypercoagulable State and Left Lower Extremity Ischemia Post-operative diagnosis: Same Procedure(s): Left Above-Knee Amputation Surgeon: Joanne Thompson MD Rand Cementer: None Anesthesia: General Endotracheal Anesthesia EBL: 100 mL Counts: Correct Complications: None Condition: Stable Findings: Left lower extremity ischemia Specimen: Left leg sent to pathology Indication: The patient is a 67-year-old female with a history of left lower extremity ischemia. She initially presented to us approximately one year ago with an embolus to her left lower extremity that was treated with thrombolysis. She eventually required a TMA and anticoagulation. Over the past several months she has required multiple interventions and eventually underwent a CT of her abdomen and pelvis that demonstrated a pancreatic mass with what appeared to be metastasis to the liver. This was confirmed to be metastatic pancreatic cancer by biopsy. She has significant rest pain in the left lower extremity and no options for revascularization. She is in need of an above-knee amputation to control her pain. She was given the risks, benefits, and alternative procedures and consented to the procedure. Hospital course: Pt was admitted in prep for the above stated surgery which was completed without complication. Post operatively she was transferred to the PACU and subsequently to the Med/Surg floor. PT/OT were consulted, and her activity levels were gradually increased. Pain control was initially achieved via intravenous medications and later converted to oral. By 07/18/17 the pt appeared stable for d/c. PT/OT were arranged. Home hospice was discussed with the pt and her daughter (given untreatable pancreatic ca). The pt does not want home hospice at this point. Pt doing well and okay to d/c home from vascular surgery stand point at this point (once all arrangements completed). She is to f/u in ~2wks. She will call the office with any new concerns prior to the next visit. D/c instructions given to the pt and her daughter at the bedside. Disposition: [id number] HOME UNDER HOME [facility] - Discharge Diagnoses (1) Ischemia of left lower extremity Status: Acute Core Measure Documentation - Palliative Care Palliative Care/ Comfort Measures: Not Applicable - Core Measures Any of the following diagnoses?: none Exam - Constitutional Vitals: Temp Pulse Resp BP Pulse Ox 98.4 F 75 16 141/59 96 07/18/17 11:48 07/18/17 11:48 07/18/17 11:48 07/18/17 11:48 07/18/17 11:48 General appearance: Present: no acute distress - EENT Eyes: Present: EOM intact ENT: hearing intact - Neck Neck: Present: supple - Respiratory Respiratory effort: normal - Extremities Extremities: normal temperature, abnormal (LLE aka, mild to mod posterior flap eccymosis. No active drainage, min reactive erythema along bruised posterior flap.) Extremity abnormal: ulceration (small ulceration between 1-2 and 2-3 toes to the right foot along the nail bed edge. No erythema or drainage appreciated.) - Psychiatric Psychiatric: appropriate mood/affect, intact judgment & insight, cooperative - Neurologic Neurologic: no focal deficits Plan Activity: advance as tolerated Weight Bearing Status: Weight Bear as Tolerated Diet: regular Wound: keep clean and dry Follow up with: JOANNE THOMPSON MD [Staff Physician] - 14 Days Prescriptions: Oxycodone HCl/Acetaminophen [Percocet 10/325 mg] 1 each PO Q6HR PRN #90 tablet PRN Reason: Pain
[2017-07-18] MEDS: PERCOCET 5/325 PO PRN (20:48)
[2017-07-19] MEDS: NOVOLOG SUB-Q SCH (07:30)
[2017-07-19] MEDS: PERCOCET 5/325 PO PRN ×2 (08:02→15:07)
[2017-07-19] MEDS: NEURONTIN PO SCH ×2 (08:02→14:10)
[2017-07-19] MEDS: GLUCOPHAGE XR PO SCH (09:59)
[2017-07-19] MEDS: ELIQUIS PO SCH (10:19)
[2017-07-19] MEDS: PLETAL PO SCH (10:19)
[2017-07-19] MEDS: PLAVIX PO SCH (10:19)
[2017-07-19 16:09] VITALS: BP 112/51
== END 2017-07-19 16:45 | disposition home health service (06) | DRG 240 ==
LOC: 3A 06:14 → 3B-SURG 09:37
PROVIDERS: ADMIT Surgery Vascular Surgery; ATTEND Surgery Vascular Surgery
PROC: 0Y6D0Z3 Detachment at Left Upper Leg, Low, Open Approach (ICD-10-PCS; principal; 2017-07-15)
DX: I70.245 Atherosclerosis of native arteries of left leg with ulceration of other part of foot (principal); D68.69 Other thrombophilia; C25.9 Malignant neoplasm of pancreas, unspecified; C78.7 Secondary malignant neoplasm of liver and intrahepatic bile duct; F17.200 Nicotine dependence, unspecified, uncomplicated
CPT/HCPCS: 36415; 80048; 82962; 85014; 85018; 85610; 88305; 88307; 88311; 99406; A9270-GY; G8978-GP; G8979-GP; G8987-GO; G8988-GO; J0690; J1100; J1170; J1885; J2270; J2370; J2405; J2704; J3010; J7030

== ENCOUNTER 2017-07-29 13:57 | Inpatient (IN) | payer MEDICARE ==
[2017-07-29 14:48] LABS: Hematocrit 33.6 % (30.3-42.9); Hemoglobin 10.6 gm/dl (10.1-14.3); Mean Corpuscular HGB Conc 32 % (30-34); Mean Corpuscular Hemoglobin 26 pg (28-32); Mean Corpuscular Volume 82 fl (79-97); Platelet Count 69 K/mm3 (140-440); Red Cell Distribution Width 20.4 % (13.2-15.2)
[2017-07-29 14:49] LABS: INR 1.99 (0.87-1.13)
[2017-07-29 14:50] LABS: Partial Thromboplastin Time 43.2 Sec. (24.2-36.6)
[2017-07-29 15:34] LABS: Anisocytosis 1+; Basophils % (Manual) 0 % (0.0-1.8); Eosinophils % (Manual) 0 % (0.0-4.3); Hypochromasia 2+; Monocytes % (Manual) 0 % (0.0-7.3); Total Cells Counted 100
[2017-07-29 15:35] LABS: Large Platelets Rare; Platelet Estimate Cons; Target Cells Few
[2017-07-29 15:52] LABS: BUN/Creatinine Ratio 40; Blood Urea Nitrogen 16 mg/dL (7-17); Calcium 9.3 mg/dL (8.4-10.2); Hemolysis Index 6
[2017-07-29] MEDS ORDERED: MILK OF MAGNESIA PO PRN (16:10)
[2017-07-29] MEDS ORDERED: DULCOLAX PR PRN (16:10)
[2017-07-29] MEDS ORDERED: MORPHINE IV PRN (16:10)
[2017-07-29] MEDS ORDERED: ZOFRAN IV PRN (16:10)
[2017-07-29] MEDS ORDERED: NARCAN 0.4 MG/1 ML IV PRN (16:10)
[2017-07-29] MEDS ORDERED: TYLENOL PO PRN (16:10)
[2017-07-29] MEDS ORDERED: NON-FORMULARY (Oxycodone Hcl/Acetaminophen [Percocet 10/325 Mg] 1 EACH) PO PRN (16:21)
--- NOTE | 2017-07-29 16:33 | Event Note ---
Date: 07/29/17 See Office H&P for full details prior to admission. The pt presented to the office with complaints of recurrent pain to her RLE following a recent procedure. She was sent to the hospital in preparation for an additional percutaneous intervention. Unfortunately her leg does not appear salvagable. Given her uncurable metastatic pancreatic cancer and acutely ischemic leg, we have recommended admission for pain control with a case management consult to arrange for home hospice. The pt has previously been opposed to hospice, but now agrees.
[2017-07-29] MEDS: MORPHINE IV PRN ×2 (16:49→22:17)
[2017-07-29] MEDS ORDERED: NON-FORMULARY (Gabapentin 100 MG) PO SCH (20:00)
[2017-07-29] MEDS: NEURONTIN PO SCH (21:00)
[2017-07-29] MEDS ORDERED: METFORMIN HCL 750 MG PO SCH (22:00)
[2017-07-29] MEDS: PEPCID PO SCH (22:17)
[2017-07-29] MEDS: ELIQUIS PO SCH (22:17)
[2017-07-30] MEDS: NORCO 5/325 PO PRN (00:09)
[2017-07-30] MEDS: PEPCID PO SCH ×2 (09:37→21:21)
[2017-07-30] MEDS: NEURONTIN PO SCH ×3 (09:37→20:40)
[2017-07-30] MEDS: GLUCOPHAGE PO SCH ×2 (09:37→17:47)
[2017-07-30] MEDS: PLAVIX PO SCH (09:37)
[2017-07-30] MEDS: ELIQUIS PO SCH ×2 (09:38→21:21)
[2017-07-30] MEDS: MORPHINE IV PRN (10:05)
[2017-07-30] MEDS ORDERED: MORPHINE PCA 30MG/30ML IV SCH (13:00)
[2017-07-30] MEDS: NACL 0.9% 1000 ML 1,000 ML IV SCH (13:31)
--- NOTE | 2017-07-30 16:06 | Progress Note ---
Assessment and Plan Pt with incurable metastatic pancreatic cancer. She presented with profound ishcemia to the LLE. Initially her pain level was around 5 with analgesics. Today despite analgesics she screams in discomfort. Pt's is very high risk for another AKA. Will consult [facility] to evaluate for an ablation of the sensory nerves to the LLE to help control her discomfort in preparation to be d/c to hospice. Pt initially wanted home hospice, unfortunately her family is unable to care for her adequately at home. D/c plans to transfer the pt to an inpt hospice completed. D/c once pt stable following the IR procedure. - Patient Problems (1) Atherosclerosis of [place] arteries of the extremities with gangrene Current Visit: No Status: Acute (2) Atherosclerosis of [place] arteries of the extremities with rest pain Current Visit: No Status: Acute Qualifiers: (3) Pancreatic cancer metastasized to liver Current Visit: No Status: Acute Subjective Date of service: 07/30/17 Interval history: Pt awake, but screaming in pain despite analgesics. Objective - Constitutional Vitals: Vital Signs - 12hr 07/30/17 07:46 Temperature 98.1 F Pulse Rate 86 Respiratory 18 Rate Blood Pressure 117/66 O2 Sat by Pulse 97 Oximetry General appearance: Present: mild distress - EENT Eyes: EOM intact ENT: hearing intact - Respiratory Respiratory effort: normal Extremity abnormal: cyanosis (Ischemic changes to LLE, early gangrene. Lower leg cool) - Psychiatric Psychiatric: no appropriate mood/affect (anxious due to pain), intact judgment & insight, cooperative - Labs CBC & Chem 7: 07/29/17 14:20 07/29/17 14:20 Labs: Abnormal lab results 07/29/17 07/29/17 07/30/17 Range/Units 14:20 22:20 06:35 Carbon Dioxide 21 L (22-30) mmol/L POC Glucose 120 H 133 H (70-105) 07/30/17 Range/Units 11:25 Carbon Dioxide (22-30) mmol/L POC Glucose 124 H (70-105)
[2017-07-31] MEDS: NEURONTIN PO SCH ×3 (08:00→20:57)
[2017-07-31] MEDS: GLUCOPHAGE PO SCH ×2 (08:00→16:31)
[2017-07-31] MEDS: PEPCID PO SCH (09:22)
[2017-07-31] MEDS: PLAVIX PO SCH (09:23)
[2017-07-31] MEDS: ELIQUIS PO SCH (09:23)
[2017-07-31] MEDS: NACL 0.9% 1000 ML 1,000 ML IV SCH (09:28)
[2017-07-31 13:20] VITALS: BP 114/62
--- NOTE | 2017-07-31 14:28 | Progress Note ---
Assessment and Plan Pt's pain control has improved with the [employer]. Pt to be eval'd by Dr Batista ([facility]) for possible lower ext nerve block to assist with pain control and subsequent transfer to in hospice. I called Dr Batista's office (and spoke with several staff members). I was subsequently transferred to a voice mail, where I left a message regarding the consult. 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 States her pain control is improved with [employer]. Objective - Constitutional Vitals: Vital Signs - 12hr 07/31/17 07/31/17 07/31/17 04:00 06:00 07:30 Temperature 97.6 F Pulse Rate 82 Respiratory 18 18 18 Rate Blood Pressure 121/70 O2 Sat by Pulse 96 Oximetry 07/31/17 12:52 Temperature 98.5 F Pulse Rate 84 Respiratory 18 Rate Blood Pressure 114/62 O2 Sat by Pulse 96 Oximetry General appearance: Present: no acute distress - EENT Eyes: EOM intact ENT: hearing intact - Neck Neck: supple - Respiratory Respiratory effort: normal (unlabored at rest on O2 supplementation by [place]) Extremities: abnormal (L AKA) Extremity abnormal: cyanosis (RLE with early gangrenous changes) - Psychiatric Psychiatric: no appropriate mood/affect (drowsy), cooperative - Labs CBC & Chem 7: 07/29/17 14:20 07/29/17 14:20 Labs: Abnormal lab results 07/30/17 07/30/17 07/31/17 Range/Units 16:43 21:26 06:26 POC Glucose 124 H 138 H 118 H (70-105) 07/31/17 Range/Units 12:34 POC Glucose 141 H (70-105)
[2017-07-31] MEDS: NORCO 5/325 PO PRN (20:57)
--- NOTE | 2017-08-01 18:42 | Short Stay Summary ---
Short Stay Documentation Date of service: 07/31/17 - History H&P: obtained from office - Allergies and Medications Current Medications: Allergies lisinopril Allergy (Verified 09/18/16 17:14) Rash Home Medications Medication Instructions Recorded Confirmed Last Taken Type AtorvaSTATin [Lipitor] 20 mg PO DAILY 08/26/16 07/29/17 07/28/17 History 20mg Clopidogrel Bisulfate [Clopidogrel] 75 mg PO DAILY 08/26/16 07/29/17 07/29/17 History 75mg Apixaban [Eliquis] 5 mg PO Q12HR #60 tablet 08/30/16 07/29/17 07/29/17 Rx 5mg Gabapentin 100 mg PO TID 05/22/17 07/29/17 07/29/17 History 100mg Cilostazol [Pletal] 100 mg PO BID #60 tablet 06/05/17 07/29/17 07/29/17 Rx 100mg Oxycodone HCl/Acetaminophen 1 each PO Q6HR PRN 07/10/17 07/29/17 07/29/17 History [Percocet 10/325 mg] 1 Metformin HCl [Metformin HCl ER] 750 mg PO BID 07/15/17 07/29/17 07/29/17 History 750mg - Physical exam Extremities: abnormal (L AKA) - Disposition Condition at discharge: Stable Disposition: [id number] ([facility]) - Discharge Diagnoses (1) Atherosclerosis of [place] arteries of the extremities with gangrene Status: Acute (2) Atherosclerosis of [place] arteries of the extremities with rest pain Status: Acute Qualifiers: (3) Pancreatic cancer metastasized to liver Status: Acute Short Stay Discharge Plan Activity: advance as tolerated Weight Bearing Status: Weight Bear as Tolerated Diet: regular Wound: keep clean and dry
== END 2017-07-31 21:15 | disposition hospice, inpatient (51) | DRG 300 ==
LOC: CATHLABREC 13:57 → 3A 16:10
PROVIDERS: ADMIT Surgery Vascular Surgery; ATTEND Surgery Vascular Surgery
DX: I70.261 Atherosclerosis of native arteries of extremities with gangrene, right leg (principal); C25.9 Malignant neoplasm of pancreas, unspecified; C78.7 Secondary malignant neoplasm of liver and intrahepatic bile duct; I70.221 Atherosclerosis of native arteries of extremities with rest pain, right leg; E78.5 Hyperlipidemia, unspecified; E11.9 Type 2 diabetes mellitus without complications; Z79.899 Other long term (current) drug therapy; Z79.4 Long term (current) use of insulin; Z89.612 Acquired absence of left leg above knee; Z95.820 Peripheral vascular angioplasty status with implants and grafts; Z80.9 Family history of malignant neoplasm, unspecified; Z82.49 Family history of ischemic heart disease and other diseases of the circulatory system; Z83.3 Family history of diabetes mellitus; Z88.5 Allergy status to narcotic agent
CPT/HCPCS: 36415; 80048; 82962; 85007; 85025; 85610; 85730; A9270-GY; J2270; J7030